=== PATIENT | male | born 1935 | race Caucasian/White ===

== ENCOUNTER 2020-12-22 11:39 | Emergency (ER) | payer MEDICARE ==
[2020-12-22 11:58] VITALS: PULSE 76; RESP 17; TEMP 98.2
[2020-12-22] MEDS ORDERED: SODIUM CHLORIDE 0.9% 500 ML 500 ML IV STA (12:21)
[2020-12-22] MEDS ORDERED: DIPH,PERTUS(ACELL)TETVAC-LF 0.5 ML VIAL IM ONE (12:22)
[2020-12-22] MEDS ORDERED: LIDOCAINE 1% INJ 10MG/ML (20 ML MDV) SQ ONE (12:30)
[2020-12-22] MEDS ORDERED: LIDOCAINE/EPINEPHR/TETRACAINE 5 ML BOTTLE TOPICAL ONE (12:30)
--- NOTE | 2020-12-22 12:30 | ED ---
Fall HPI - General Chief Complaint: Fall Stated Complaint: fall Source: patient, family Mode of arrival: wheelchair Limitations: no limitations - History of Present Illness Initial Comments: 85-year-old well-appearing and active white male presents to the emergency room with complaints of feeling lightheaded today while he was outside gardening. Patient states that he started to walk into the house and he fell going down the steps. He states he did not pass out, no loss of consciousness. Patient did sustain laceration above his right eyebrow. Patient denies any other injuries. He states that he has been monitoring his blood pressure at home and it has been reading a has an earache regular heartbeat. Patient has no history of atrophic fibrillation. He states he takes an aspirin a day but no other blood thinners. He denies any pain at this time. No focal neurological deficits. Patient states that he did get lightheaded again getting up from the wheelchair to the bed. Resolved once he was laying down. 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 ROS Other: All systems not noted in ROS Statement are negative. Past Medical History Past Medical History: No Reported History History of Any Multi-Drug Resistant Organisms: None Reported Past Surgical History: Hernia Repair Past Psychological History: No Psychological Hx Reported Smoking Status: Never smoker Past Alcohol Use History: None Reported Past Drug Use History: None Reported General Exam Limitations: no limitations General appearance: alert, in no apparent distress Head exam: Present: normocephalic, other (Laceration of the right eyebrow, bleeding controlled) Expanded Head exam: Absent: laceration, general tenderness, tenderness of temporal artery Eye exam: Present: normal appearance, PERRL, EOMI. Absent: scleral icterus, conjunctival injection, nystagmus, periorbital swelling Pupils: Present: normal accommodation ENT exam: Present: normal exam, normal oropharynx, mucous membranes moist Neck exam: Present: normal inspection, full ROM. Absent: tenderness, mening ismus, lymphadenopathy, thyromegaly Expanded Neck exam: Absent: tenderness, midline deformity, anterior neck swelling, thyroid mass, tracheal deviation Respiratory exam: Present: normal lung sounds bilaterally. Absent: respiratory distress, wheezes, rales, rhonchi, stridor, chest wall tenderness, accessory muscle use, decreased breath sounds, prolonged expiratory Cardiovascular Exam: Present: regular rate, normal rhythm, normal heart sounds. Absent: irregular rhythm, systolic murmur, diastolic murmur, rubs, gallop, clicks, JVD GI/Abdominal exam: Present: soft, normal bowel sounds. Absent: distended, tenderness, guarding, rebound, rigid Extremities exam: Present: normal inspection, full ROM, normal capillary refill. Absent: tenderness, pedal edema, joint swelling, calf tenderness Back exam: Present: normal inspection, full ROM. Absent: tenderness, CVA tenderness (R), CVA tenderness (L), muscle spasm, paraspinal tenderness, vert ebral tenderness, rash noted Expanded Back exam: Absent: saddle anesthesia Back exam: Negative Straight Leg Raising: Right, Left Neurological exam: Present: alert, oriented X3, CN II-XII intact Expanded Patient oriented to: Present: person, place, time Speech: Present: fluid speech Cranial nerves: EOM's Intact: Normal, Gag Reflex: Normal, Tongue Deviation: Normal Cerebellar function: Finger to Nose: Normal, Heel to [place]: Normal Motor strength exam: RUE: 5, LUE: 5, RLE: 5, LLE: 5 Eye Response: (4) open spontaneously Motor Response: (6) obeys commands Verbal Response: (5) oriented Serge Total: 15 Psychiatric exam: Present: normal affect, normal mood Skin exam: Present: warm, dry, intact, normal color. Absent: rash, cyanosis, diaphoretic, erythema, petechiae, pallor, mottled Course Vital Signs 12/22/20 11:50 Temperature 98.2 F Pulse Rate 76 Respiratory 17 Rate Blood Pressure 128/82 O2 Sat by Pulse 97 Oximetry Medical Decision Making - Medical Decision Making 0.5 cm laceration noted to the right lateral eyebrow irrigated with saline and closed with dermal glue at patient request. well approximated. CT brain and C- spine shows no evidence for fracture, ischemic changes but no evidence of intracranial bleed or midline shift. There is complete opacification of the right maxillary sinus. Chest x-ray is negative for any acute cardiopulmonary process. Troponin is negative at 0.012, potassium is 4.4, glucose was 109, hemoglobin and hematocrit is 14 and 43. WBC count is 5.3. Patient instructed to follow up with his primary care doctor and cardiology for irregular heartbeat and near-syncopal episodes. Son at bedside states he will help patient with these arrangements. Irritable directed to return to the emergency room with any worsening symptoms including chest pain, shortness of breath or syncope. Patient and son are agreeable to this plan of care. Case discussed with Dr. Chambers and Dr. Alvarado - Lab Data Result diagrams: 12/22/20 12:37 12/22/20 12:37 Lab Results 12/22/20 12/22/20 12/22/20 Range/Units 12:37 12:37 12:37 WBC 5.3 (3.8-10.6) k/uL RBC 4.58 (4.30-5.90) m/uL Hgb 14.8 (13.0-17.5) gm/dL Hct 43.6 (39.0-53.0) % MCV 95.2 (80.0-100.0) fL MCH 32.3 (25.0-35.0) pg MCHC 34.0 (31.0-37.0) g/dL RDW 12.4 (11.5-15.5) % Plt Count 265 (150-450) k/uL MPV 8.4 Neutrophils % 66 % Lymphocytes % 20 % Monocytes % 7 % Eosinophils % 5 % Basophils % 1 % Neutrophils # 3.5 (1.3-7.7) k/uL Lymphocytes # 1.1 (1.0-4.8) k/uL Monocytes # 0.4 (0-1.0) k/uL Eosinophils # 0.3 (0-0.7) k/uL Basophils # 0.0 (0-0.2) k/uL Sodium 139 (137-145) mmol/L Potassium 4.4 (3.5-5.1) mmol/L Chloride 106 (98-107) mmol/L Carbon Dioxide 28 (22-30) mmol/L Anion Gap 5 mmol/L BUN 25 H (9-20) mg/dL Creatinine 0.96 (0.66-1.25) mg/dL Est GFR (CKD-EPI)AfAm 84 (>60 ml/min/1.73 sqM) Est GFR (CKD-EPI)NonAf 72 (>60 ml/min/1.73 sqM) Glucose 109 H (74-99) mg/dL Calcium 10.0 (8.4-10.2) mg/dL Total Bilirubin 0.7 (0.2-1.3) mg/dL AST 31 (17-59) U/L ALT 18 (4-49) U/L Alkaline Phosphatase 109 (38-126) U/L Troponin I <0.012 (0.000-0.034) ng/mL Total Protein 6.7 (6.3-8.2) g/dL Albumin 4.0 (3.5-5.0) g/dL Urine Color Urine Appearance (Clear) Urine pH (5.0-8.0) Ur Specific [place] (1.001-1.035) Urine Protein (Negative) Urine Glucose (UA) (Negative) Urine Ketones (Negative) Urine Blood (Negative) Urine Nitrite (Negative) Urine Bilirubin (Negative) Urine Urobilinogen (<2.0) mg/dL Ur Leukocyte Esterase (Negative) 12/22/20 Range/Units 13:54 WBC (3.8-10.6) k/uL RBC (4.30-5.90) m/uL Hgb (13.0-17.5) gm/dL Hct (39.0-53.0) % MCV (80.0-100.0) fL MCH (25.0-35.0) pg MCHC (31.0-37.0) g/dL RDW (11.5-15.5) % Plt Count (150-450) k/uL MPV Neutrophils % % Lymphocytes % % Monocytes % % Eosinophils % % Basophils % % Neutrophils # (1.3-7.7) k/uL Lymphocytes # (1.0-4.8) k/uL Monocytes # (0-1.0) k/uL Eosinophils # (0-0.7) k/uL Basophils # (0-0.2) k/uL Sodium (137-145) mmol/L Potassium (3.5-5.1) mmol/L Chloride (98-107) mmol/L Carbon Dioxide (22-30) mmol/L Anion Gap mmol/L BUN (9-20) mg/dL Creatinine (0.66-1.25) mg/dL Est GFR (CKD-EPI)AfAm (>60 ml/min/1.73 sqM) Est GFR (CKD-EPI)NonAf (>60 ml/min/1.73 sqM) Glucose (74-99) mg/dL Calcium (8.4-10.2) mg/dL Total Bilirubin (0.2-1.3) mg/dL AST (17-59) U/L ALT (4-49) U/L Alkaline Phosphatase (38-126) U/L Troponin I (0.000-0.034) ng/mL Total Protein (6.3-8.2) g/dL Albumin (3.5-5.0) g/dL Urine Color Yellow Urine Appearance Clear (Clear) Urine pH 6.0 (5.0-8.0) Ur Specific [place] 1.015 (1.001-1.035) Urine Protein Negative (Negative) Urine Glucose (UA) Negative (Negative) Urine Ketones 1+ H (Negative) Urine Blood Negative (Negative) Urine Nitrite Negative (Negative) Urine Bilirubin Negative (Negative) Urine Urobilinogen <2.0 (<2.0) mg/dL Ur Leukocyte Esterase Negative (Negative) - EKG Data EKG shows normal: sinus rhythm (Ventricular rate of 68, NC interval 0.226, QRS of 0.88, QTc 0.431; first-degree AV block) Disposition Clinical Impression: Pre-syncope, Fall Disposition: HOME SELF-CARE Condition: Good Instructions (If sedation given, give patient instructions): Fall Prevention for Older Adults (ED), Near Syncope (ED) Additional Instructions: Return to the emergency room with any worsening symptoms including chest pain, shortness of breath. Instructed to keep the facial laceration clean and dry. Return if any signs of infection including fever, drainage or redness. Is patient prescribed a controlled substance at d/c from ED?: No Referrals: None,Stated [Primary Care Provider] - 1-2 days Tracy Serrato MD [Medical Doctor] - 1-2 days Yan Villeda MD [STAFF PHYSICIAN] - 1-2 days Time of Disposition: 14:46
[2020-12-22 13:02] LABS: Basophils % (A) 1 %; Eosinophils # (A) 0.3 k/uL (0-0.7); Eosinophils % (A) 5 %; HCT 43.6 % (39.0-53.0); HGB 14.8 gm/dL (13.0-17.5); Lymphocytes # (A) 1.1 k/uL (1.0-4.8); Lymphocytes % (A) 20 %; MCH 32.3 pg (25.0-35.0); MCV 95.2 fL (80.0-100.0); Mean Platelet Volume 8.4; Monocytes # (A) 0.4 k/uL (0-1.0); Monocytes % (A) 7 %; Neutrophils # (A) 3.5 k/uL (1.3-7.7); Neutrophils % (A) 66 %; Platelet Count 265 k/uL (150-450); RBC 4.58 m/uL (4.30-5.90); RDW 12.4 % (11.5-15.5); WBC 5.3 k/uL (3.8-10.6)
[2020-12-22 13:10] LABS: Potassium 4.4 mmol/L (3.5-5.1); Total Bilirubin 0.7 mg/dL (0.2-1.3); Total Protein 6.7 g/dL (6.3-8.2)
--- NOTE | 2020-12-22 13:25 | CT ---
EXAMINATION TYPE: CT brain jazmyne perez DATE OF EXAM: 12/22/2020 COMPARISON: None HISTORY: Fall today with Right supraorbital lacertaion CT DLP: 1399.[address] of the brain was performed. The ventricles, basal cisterns and sulci overlying the cerebral convexities demonstrate mild enlargem ent. There is no evidence for intracranial hemorrhage or sulcal effacement. There is decreased attenuatio n about the periventricular white matter and deep white matter of both cerebral hemispheres, compatib le with chronic small vessel ischemia. No mass effects are seen. If symptoms persist consider MRI. Osseous calvarium is intact. Complete opacification right maxillary sinus. IMPRESSION: 1. Age related atrophic and chronic small vessel ischemic change without acute intracranial process seen at this time. CT Cervical Spine: Unenhanced CT of the cervical spine was performed with bone and soft tissue window settings submitted . Coronal and sagittal reconstruction is obtained. There is normal alignment and prevertebral soft tissues. No evidence for acute cervical fracture . Scattered degenerative disc disease and spondylosis. Biapical scarring. IMPRESSION: 1. No evidence for acute fracture or subluxation of the cervical spine.
--- NOTE | 2020-12-22 13:26 | XR ---
EXAMINATION TYPE: XR chest 2V DATE OF EXAM: 12/22/2020 COMPARISON: 10/21/2012 HISTORY: Shortness of breath TECHNIQUE: Frontal and lateral views of the chest are obtained. FINDINGS: Scattered senescent parenchymal changes noted. Hyperinflation compatible with COPD. No evidence for infiltrate. No evidence for atelectasis. Heart size is stable. Mediastinal structures are stable and grossly unremarkable. No evidence for hilar prominence. Degenerative changes dorsal spine. IMPRESSION: 1. No evidence for acute pulmonary disease.
[2020-12-22] MEDS ORDERED: TOPICAL SKIN ADHESIVE 1 EACH AMP TOPICAL ONE (13:28)
[2020-12-22 14:23] LABS: Appearance,Urine Clear (Clear); Bilirubin,Urine Negative (Negative); Blood,Urine Negative (Negative); Color,Urine Yellow; Glucose,Urine (UA) Negative (Negative); Ketones,Urine 1+ (Negative); Leukocyte Esterase,Urine Negative (Negative); Nitrite,Urine Negative (Negative); Protein,Urine Negative (Negative); Specific Gravity,Urine 1.015 (1.001-1.035); Urobilinogen,Urine <2.0 mg/dL (<2.0)
[2020-12-22 16:12] VITALS: BP 132/72
== END 2020-12-22 14:55 | disposition home or self-care (01) ==
LOC: EC 11:39
DX: S01.111A Laceration without foreign body of right eyelid and periocular area, initial encounter (principal); R55 Syncope and collapse; Z88.0 Allergy status to penicillin; W10.9XXA Fall (on) (from) unspecified stairs and steps, initial encounter; Y92.009 Unspecified place in unspecified non-institutional (private) residence as the place of occurrence of the external cause
CPT/HCPCS: 36415; 93005; 80053; 84484; 85025; 81003; 71046; 72125; 70450; 90715; 12011; 99284; J2001

== ENCOUNTER → 2021-03-02 | Outpatient (CLI) | payer MEDICARE ==
[2021-03-02 09:39] LABS: African American GFR (CKD) >90 (>60 ml/min/1.73 sqM); Blood Urea Nitrogen 19 mg/dL (9-20); Non-African American GFR(CKD) 81 (>60 ml/min/1.73 sqM)
--- NOTE | 2021-03-02 11:15 | CT ---
EXAMINATION TYPE: CT abdomen pelvis w con DATE OF EXAM: 03/02/2021 COMPARISON: 12/12/2019 HISTORY: Prostate CA CT DLP: 708.5 mGycm Automated exposure control for dose reduction was used. CONTRAST: CT scan of the abdomen pelvis is performed with IV Contrast, patient injected with 100 mL of Isovue 3 00. FINDINGS- LUNG BASES-there is a subpleural nodule in the right lower lobe measuring 1.1 cm. Heart is enlarged. LIVER/GB- No gross abnormality is appreciated. PANCREAS- No gross abnormality is seen. SPLEEN- No gross abnormality is seen. ADRENALS- No gross abnormality is seen. KIDNEYS/BLADDER- no hydronephrosis or nephrolithiasis. Bilateral simple appearing renal cysts.. BOWEL-bowel gas pattern nonspecific. Changes of diverticulosis noted LYMPH NODES- No greater than 1cm abdominal or pelvic lymph nodes areappreciated. OSSEOUS STRUCTURES-there are remote rib fractures noted involving the right rib cage. Multifocal hype rtrophic and degenerative changes spine. There are sclerotic changes involving the pelvic bones with some areas of mixed lucency suggestive of bony metastasis. Retroverted arthropathy of the AC joint an d hip joints. Sclerosis involving the femoral head region bilaterally is nonspecific. Posteriorly.. OTHER- there is a 3 cm anterior subcutaneous soft tissue mass. Aorta of normal caliber. There is a s mall hiatal hernia. Prostate gland is mildly prominent with calcification. There is ectasia of the ao rta and iliac vasculature. No free fluid. Radiodensity overlying the anterior left abdominal wall lik loy artifactual. IMPRESSION- 1. 3 cm anterior abdominal wall subcutaneous mass. Metastases in the differential diagnosis. Findings stable from prior exam. 2. Right lower lobe subpleural nodule persists. Findings similar in size to prior exam. 3. 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
--- NOTE | 2021-03-02 16:41 | NM ---
EXAMINATION TYPE: NM bone scan whole body DATE OF EXAM: 03/02/2021 COMPARISON: CT abdomen and pelvis 03/02/2021 HISTORY: Prostate cancer Delayed whole-body scanning was performed following the injection of 22.6 mCi Tc 99m MDP. Images wer e acquired 4.75 hours post injection. FINDINGS: 2 foci of increased radiotracer accumulation within the posterior right ninth and 10th ribs. Addition al uptake appears to be within the anterior right ninth and 10th rib region. Correlate for trauma. COMPARISON: This exam is compared to 03/02/2021. Posterior right rib fractures are evident which likel y correspond to the radiotracer uptake on the bone scan. Likewise, healing fractures appear to be honey ng the anterior ribs corresponding to the radiotracer on the bone scan. Some mild uptake is near the bilateral knees and at the right ankle, likely degenerative in nature. There is uptake present within the posterior left sacroiliac joint region. This could correlate with the bone findings on the CT examination. Sclerosis however appears greater on the right and less inte nse on the bone scan images. Metastasis would remain within the differential. IMPRESSION: 1. Radiotracer within the sacroiliac joint region corresponds to findings on the CT examination sugge stive for underlying metastasis. 2. Intense uptake in the region of the ninth and 10th ribs appear to be related to rib fractures iden tified on the recent CT exam.
== END | disposition home or self-care (01) ==
LOC: RADCTMAIN 08:38
PROVIDERS: ATTEND Urology
DX: C61 Malignant neoplasm of prostate (principal)
CPT/HCPCS: 82565; 84520; 74177; 36415; 78306; A9503; Q9967

== ENCOUNTER 2021-05-18 06:30 | Day surgery (SDC) | payer MEDICARE ==
[2021-05-17 08:37] VITALS: BMI 22.8
[~2021-05-18 06:30] MED LIST: CYCLOPENTOLATE 1% OPHTH SOLN 2 ML BTL OP PRN; LACTATED RINGERS 1,000 ML IV SCH; MOXIFLOXACIN HCL 0.5% DROPS 3 ML BTL OP PRN; PHENYLEPHRINE 2.5% OPHTH DRP 2ML OP PRN; TETRACAINE 0.5% OPHTH (PF) DROPS 4 ML BTL OP PRN; TIMOLOL 0.5% OPHTH DROPS 5 ML BTL OP PRN
[2021-05-18] MEDS ORDERED: MIDAZOLAM 2 MG/2 ML VIAL ONE (07:35)
[2021-05-18] MEDS ORDERED: fentaNYL (PF) 50 MCG/ML 2 ML AMP ONE (07:35)
[2021-05-18] MEDS ORDERED: LACTATED RINGERS 800 ML IV ONE (07:40)
[2021-05-18] MEDS ORDERED: LIDOCAINE 1% (PF) 10MG/ML VIAL MISCELLANE ONE (07:55)
[2021-05-18] MEDS ORDERED: TRYPAN BLUE 0.06% SYRINGE 0.5 ML SYRINGE INTRAOCULA ONE (07:55)
[2021-05-18] MEDS ORDERED: EPINEPHrine (PF) 0.3 ML in BALANCED SALT IRRIG SOLN COMB2 500 ML IRRIGATION ONE (07:55)
[2021-05-18] MEDS ORDERED: BALANCED SALT IRRIG SOLN COMB2 15 ML IRRIG.SOLN INTRAOCULA ONE (07:55)
[2021-05-18] MEDS ORDERED: DUOVISC KIT (GREEN BOX) INTRAOCULA ONE (07:55)
--- NOTE | 2021-05-18 08:20 | P.OP ---
Date of Procedure: 05/18/21 Preoperative Diagnosis: NS & POAG mild Postoperative Diagnosis: same Procedure(s) Performed: PIOL & goniotomy Implants: [id number] MXUET18.5x 4.25 Anesthesia: MAC Surgeon: Dario Keller Pathology: none sent Condition: stable Disposition: no change Indications for Procedure: blurry vision and advancing glaucoma Operative Findings: no complications
[2021-05-18 08:34] VITALS: RESP 20
[2021-05-18 09:07] VITALS: BP 148/70; PULSE 66
--- NOTE | 2021-05-18 12:24 | OP ---
OPERATIVE REPORT DATE OF SURGERY: 05/18/2021. PROCEDURE: Phacoemulsification of cataract and intraocular lens implant of the right eye with goniotomy of the right eye. 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 SURGEON: Dr. Dario Keller. ANESTHESIA: Topical. ESTIMATED BLOOD LOSS: Minimal. SPECIMEN TAKEN: None. NARRATIVE: After obtaining the appropriate consent, the patient was brought to the operating room. There he was asked to sit upright, and the axes of zero and 180 meshwork for approximately 4 clock-hours was removed without difficulty. The patient was then rotated back to the normal supine position. A cystotome was introduced to begin a continuous tear capsulorrhexis which was then completed using the Utrata forceps. Hydrodissection and hydrodelineation of the lens was accomplished with balanced salt solution. Phacoemulsification utilizing phaco chop was accomplished in 36.29 seconds at 23% power. MMODL / IJN: [id number] /
--- NOTE | 2021-05-18 18:59 | OP ---
OPERATIVE REPORT DATE OF PROCEDURE: May 18, 2021 PROCEDURES: Phacoemulsification of cataract and intraocular lens implant of the right eye with goniotomy. PREOPERATIVE DIAGNOSES: Nuclear sclerosis, cortical sclerosis regular astigmatism and primary open-angle glaucoma mild stage. POSTOPERATIVE DIAGNOSES: Nuclear sclerosis, cortical sclerosis regular astigmatism and primary open-angle glaucoma mild stage. SURGEON: Dr. Draio Keller. ANESTHESIA: Topical. ESTIMATED BLOOD LOSS: None. SPECIMEN: None. NARRATIVE: After obtaining the appropriate consent, the patient was brought to the operating room. There he was asked to sit upright in the axes 0 and 180 degrees were identified and marked with a gentian ethel marker. He was then placed in the proper supine position under cardiac monitoring, then prepped and draped in the usual sterile manner. He was approached from his right temporal side and using previously acquired corneal topography information, the axis of 80 degrees was identified and marked with the [employer] axis marker. At the 11 o'clock position an MVR blade was used to create a paracentesis port. Through this opening, 1% Xylocaine MPF 50:50 mix with balanced salt solution was injected into the anterior chamber. This was followed by Trypan blue which was allowed to stay in the eye for about 1 minute. This was irrigated away with balanced salt solution and the eye was stabilized using Viscoat. At the 9 o'clock position, a 2.5 mm keratome was used to create a self-sealing corneal flap incision. At this point, the patient was asked to turn his head approximately 45 degrees away to the left and maintaining gaze in that general direction. A gonioscopy prism was placed on the patient's eye and the trabecular meshwork was readily identified with Trypan blue. Using a [place] dual blade goniotomy knife, a "reid and meet" method was used to remove the trabecular meshwork for approximately 4 o'clock hours on the nasal side of the patient's anterior chamber. He was then rotated back to the normal supine position and a cystotome was introduced to begin a continuous tear capsulorrhexis which was completed using the Utrata forceps. Hydrodissection and hydrodelineation of the lens were accomplished with balanced salt solution. Phacoemulsification of the lens utilizing phaco chop was accomplished in 36.29 seconds at 23% power. Additional Xylocaine MPF was instilled into the anterior chamber. This was followed by removal of the remaining cortex under irrigation and aspiration as well as careful polishing of the posterior capsule in the capsule vacuum mode. Provisc was then used to stabilize the capsular bag and a [employer] and [place] toric model MX UET 425+ 1 85 implant was placed into the capsular bag without difficulty. The remaining viscoelastic was removed from in and around the intraocular lens and the lens was rotated to its final position in alignment with the previously placed corneal axis norman at 8 degrees. The eye was brought to normal intraocular pressure through the paracentesis port with balanced salt solution. The wounds were confirmed watertight. He then received 2 drops of 0.5% timolol followed by 2 drops of moxifloxacin, was then lightly patched and shielded in the usual manner. There were no complications from the procedure. He tolerated the procedure well and was returned to outpatient recovery in good condition. MMMONIQUE / OLIVIA: [id number] /
== END 2021-05-18 09:08 | disposition home or self-care (01) ==
LOC: OR 06:30
PROVIDERS: ATTEND Ophthalmology
DX: H25.11 Age-related nuclear cataract, right eye (principal); H40.053 Ocular hypertension, bilateral; H40.1131 Primary open-angle glaucoma, bilateral, mild stage; H25.12 Age-related nuclear cataract, left eye; H52.13 Myopia, bilateral; G24.5 Blepharospasm; H52.223 Regular astigmatism, bilateral; H00.023 Hordeolum internum right eye, unspecified eyelid; Z88.1 Allergy status to other antibiotic agents; Z88.6 Allergy status to analgesic agent; Z79.899 Other long term (current) drug therapy; H00.026 Hordeolum internum left eye, unspecified eyelid
CPT/HCPCS: 66984; V2787; C1780; J2250; J0171; J3010; J2001

== ENCOUNTER 2021-06-22 06:24 | Day surgery (SDC) | payer MEDICARE ==
[2021-06-17 11:13] VITALS: BMI 22.8
[~2021-06-22 06:24] MED LIST changes: -CYCLOPENTOLATE 1% OPHTH SOLN 2 ML BTL OP PRN; +LIDOCAINE 1% (10MG/ML) FOR IV START INTRADERMA PRN; -PHENYLEPHRINE 2.5% OPHTH DRP 2ML OP PRN
[2021-06-22] MEDS: CYCLOPENTOLATE 1% OPHTH SOLN 2 ML BTL OP PRN ×3 (06:57→07:09)
[2021-06-22] MEDS: PHENYLEPHRINE 2.5% OPHTH DRP 2ML OP PRN ×3 (07:00→07:12)
[2021-06-22 07:09] VITALS: RESP 16; TEMP 97.6
[2021-06-22] MEDS ORDERED: fentaNYL (PF) 50 MCG/ML 2 ML AMP ONE (07:25)
[2021-06-22] MEDS ORDERED: MIDAZOLAM 2 MG/2 ML VIAL ONE (07:25)
[2021-06-22] MEDS ORDERED: TRYPAN BLUE 0.06% SYRINGE 0.5 ML SYRINGE MISCELLANE ONE (08:06)
[2021-06-22] MEDS ORDERED: LIDOCAINE 1% (PF) 10MG/ML VIAL SQ ONE (08:06)
[2021-06-22] MEDS ORDERED: BALANCED SALT IRRIG SOLN COMB2 15 ML IRRIG.SOLN IRRIGATION ONE (08:06)
[2021-06-22] MEDS ORDERED: DUOVISC KIT (GREEN BOX) INTRAOCULA ONE (08:06)
[2021-06-22] MEDS ORDERED: EPINEPHrine (PF) 0.3 ML in BALANCED SALT IRRIG SOLN COMB2 500 ML IRRIGATION ONE (08:07)
--- NOTE | 2021-06-22 08:28 | P.OP ---
Date of Procedure: 06/22/21 Preoperative Diagnosis: NS & POAG Postoperative Diagnosis: same Procedure(s) Performed: PIOL & goniotomy, OS Implants: [id number] 19.50 x 3.50 Anesthesia: MAC Surgeon: Dario Keller Pathology: none sent Condition: stable Disposition: same day Indications for Procedure: blurry visoin and glaucoma control Operative Findings: no complications
[2021-06-22 08:32] VITALS: PULSE 56
[2021-06-22 08:57] VITALS: BP 127/75
--- NOTE | 2021-06-23 11:34 | OP ---
OPERATIVE REPORT DATE OF SURGERY: 06/22/2021 PROCEDURE: Phacoemulsification of cataract and intraocular lens implant of the left eye with goniotomy of the left eye PREOPERATIVE DIAGNOSES: Nuclear sclerosis, cortical sclerosis, regular astigmatism and primary open-angle glaucoma, mild stage. POSTOPERATIVE DIAGNOSIS: Nuclear sclerosis, cortical sclerosis, regular astigmatism and primary open-angle glaucoma, mild stage. SURGEON: Dr. Dario Keller. ANESTHESIA: Topical. ESTIMATED BLOOD LOSS: None. SPECIMEN TAKEN: None. NARRATIVE: After obtaining the appropriate consent, the patient was brought to the operating room. There he was placed under cardiac monitoring, prepped and draped in the usual sterile manner. He was approached from his left temporal side, and using previously acquired corneal topography information, the axis of 166 degrees was identified and marked with the [employer] axis marker. This was followed by an MVR blade which was used as a paracentesis at the 5 o'clock position. Through this opening, 1% Xylocaine MPF 50:50 mix with balanced salt solution was injected into the anterior chamber. This was followed by instillation of Trypan blue, which was allowed to dwell in the eye for one minute. The Trypan was irrigated away and Viscoat was then used to stabilize the anterior chamber. At the 3 o'clock position, a 2.5 mm keratome was used to create a self-sealing corneal flap incision. A small amount of viscoelastic was placed on the patient's cornea. The patient was asked to rotate his head approximately 45 degrees to his right and a [place] dual blade goniotomy knife using the [id number] method was passed across the anterior chamber, and removal of the trabecular meshwork in the manner described was performed without difficulty. He was then rotated back to the normal supine position. A cystotome was introduced to begin a continuous tear capsulorrhexis which was then completed using the Utrata forceps. Hydrodissection and hydrodelineation of the lens were accomplished with balanced salt solution. Phacoemulsification of the lens utilizing phaco chop was accomplished in 32.67 seconds at 28% power. Additional lidocaine MPF was instilled into the anterior chamber. This was followed by removal of the remaining cortex under irrigation and aspiration as well as careful polishing of the posterior capsule in the capsule vacuum mode. Provisc was then used to stabilize the capsular bag and a Bausch and Lomb model MX60 ET, 19.5 x 3.5 diopters, was then inserted into the capsular bag without difficulty. The remaining viscoelastic was removed from in and around the intraocular lens. This was followed by orientation of the lens at the previously marked 166 degrees. The eye was then brought to normal intraocular pressure through the paracentesis and the eye was confirmed to be watertight. He then received 2 drops of 0.5% timolol followed by 2 drops of moxifloxacin, was then lightly patched and shielded in the usual manner. There were no complications of the procedure. He tolerated the procedure well and was returned to Outpatient Recovery in good condition. MMODL / IJN: [id number] /
== END 2021-06-22 09:20 | disposition home or self-care (01) ==
LOC: OR 06:24
PROVIDERS: ATTEND Ophthalmology
DX: H25.12 Age-related nuclear cataract, left eye (principal); H40.1121 Primary open-angle glaucoma, left eye, mild stage; H52.223 Regular astigmatism, bilateral; H40.053 Ocular hypertension, bilateral; G24.5 Blepharospasm; H43.399 Other vitreous opacities, unspecified eye; H00.023 Hordeolum internum right eye, unspecified eyelid; H00.026 Hordeolum internum left eye, unspecified eyelid; Z96.1 Presence of intraocular lens; Z98.41 Cataract extraction status, right eye; Z98.890 Other specified postprocedural states; Z79.1 Long term (current) use of non-steroidal anti-inflammatories (NSAID); Z79.82 Long term (current) use of aspirin; Z79.899 Other long term (current) drug therapy; N42.9 Disorder of prostate, unspecified; Z82.1 Family history of blindness and visual loss; Z83.3 Family history of diabetes mellitus; Z88.0 Allergy status to penicillin; Z88.8 Allergy status to other drugs, medicaments and biological substances; Z88.1 Allergy status to other antibiotic agents
CPT/HCPCS: 65820; 66982; C1780; J2250; J0171; J3010; J2001

== ENCOUNTER 2022-08-16 09:14 | Inpatient (IN) | payer MEDICARE ==
[2022-08-16] MEDS ORDERED: MORPHINE SULFATE 4 MG/ML SYRINGE IVP STA ×2 (09:47→10:52)
[2022-08-16] MEDS ORDERED: SODIUM CHLORIDE 0.9% 500 ML 500 ML IV STA (09:47)
--- NOTE | 2022-08-16 09:49 | ED ---
General Adult HPI - General Chief complaint: Abdominal Pain Stated complaint: Abd pain Time Seen by Provider: 08/16/22 09:40 Source: patient, RN notes reviewed, old records reviewed Mode of arrival: EMS Limitations: no limitations - History of Present Illness Initial comments: 87-year-old male presenting for evaluation of abdominal pain and left flank p ain. Symptoms began about 2 hours prior to arrival. No associated vomiting or diarrhea. Patient states he had a bowel movement yesterday. No rectal bleeding. No hematuria or dysuria. No fevers. Pain is severe at the time my evaluation. - Related Data Home Medications Medication Instructions Recorded Confirmed Aspirin EC [Ecotrin Low Dose] 81 mg PO Q3D 12/22/20 08/16/22 [place]-3 Fatty Acids/Fish Oil [Fish 1 cap PO Q2D 12/22/20 08/16/22 Oil 1,000 mg Softgel] Potassium Gluconate [Potassium 99 mg PO Q2D 12/22/20 08/16/22 Gluconate ER] Cholecalciferol [Vitamin D3 (25 25 mcg PO DAILY 05/17/21 08/16/22 Mcg = 1000 Iu)] bisacodyL [Dulcolax] 5 mg PO DAILY 05/17/21 08/16/22 Carboxymethylcellulose Sodium 1 drop BOTH EYES BID 08/16/22 08/16/22 [Refresh Tears] Allergies Allergy/AdvReac Type Severity Reaction Status Date / Time amoxicillin Allergy Unknown Verified 08/16/22 10:50 Review of Systems ROS Statement: Those systems with pertinent positive or pertinent negative responses have been documented in the HPI. ROS Other: All systems not noted in ROS Statement are negative. Past Medical History Past Medical History: Cancer, Eye Disorder, Prostate Disorder Additional Past Medical History / Comment(s): hx. prostate cancer 2019-getting hormone injections, kidney stones, cataracts History of Any Multi-Drug Resistant Organisms: None Reported Past Surgical History: Hernia Repair Additional Past Surgical History / Comment(s): prostate biopsy,rt cataract Past Anesthesia/Blood Transfusion Reactions: No Reported Reaction Smoking Status: Never smoker - Past Family History Mother Family Medical History: No Reported History Daughter(s) Family Medical History: Cancer Additional Family Medical History / Comment(s): breast General Exam Limitations: no limitations General appearance: alert, in no apparent distress Head exam: Present: atraumatic, normocephalic Eye exam: Present: normal appearance, PERRL ENT exam: Present: normal exam Neck exam: Present: normal inspection. Absent: tenderness, meningismus Respiratory exam: Present: normal lung sounds bilaterally. Absent: respiratory distress, wheezes Cardiovascular Exam: Present: regular rate, normal rhythm GI/Abdominal exam: Present: soft, tenderness (Generalized tenderness). Absent: distended, guarding Extremities exam: Present: normal inspection, normal capillary refill. Absent: pedal edema, joint swelling Neurological exam: Present: alert, oriented X3, CN II-XII intact. Absent: motor sensory deficit Psychiatric exam: Present: normal affect, normal mood Skin exam: Present: warm, dry, intact. Absent: cyanosis, diaphoretic Course Vital Signs 08/16/22 08/16/22 09:17 10:30 Pulse Rate 64 57 L Respiratory 18 16 Rate Blood Pressure 136/80 155/85 O2 Sat by Pulse 100 100 Oximetry EKG Findings - EKG Comments: EKG Findings:: EKG: Sinus rhythm with first-degree AV block rate of 62, MI int erval 266, QRS duration 88, QTC 440 ST segment elevation. Medical Decision Making - Medical Decision Making Was pt. sent in by a medical professional or institution (, PA, DRAMATIC ARTS HISTORIAN, urgent care, hospital, or [place] health care facility...) When possible be specific @ -[No] Did you speak to anyone other than the patient for history (EMS, parent, family, police, friend...)? What history was obtained from this source @ -[No] Did you review nursing and triage notes (agree or disagree)? Why? @ -[I reviewed and agree with nursing and triage notes] Were old charts reviewed (outside hosp., previous admission, EMS record, old EKG, old radiological studies, urgent care reports/EKG's, [place] health care facility records)? Report findings @ -Reviewed previous laboratory testing Differential Diagnosis (chest pain, altered mental status, abdominal pain women, abdominal pain men, vaginal bleeding, weakness, fever, dyspnea, syncope, headache, dizziness, GI bleed, back pain, seizure, CVA, palpatations, mental health, musculoskeletal)? @ -Differential Abdominal Pain Men: Appendicitis, cholecystitis, diverticulosis, ischemic bowel, pancreatitis, hepatitis, UTI, gastroenteritis, AAA, incarcerated hernia, bowel obstruction, constipation, inflammatory bowel, hepatitis, peptic ulcer disease, splenic infarction, perforated viscus, testicular torsion, this is not meant to be an all-inclusive list EKG interpreted by me (3pts min.). @ -[As above] X-rays interpreted by me (1pt min.). @ -[None done] CT interpreted by me (1pt min.). @ -CT abdomen and pelvis was performed, shows obstructive uropathy on the left with 3 mm stone in the mid ureter on the left. There is also concern for ruptured fornix U/S interpreted by me (1pt. min.). @ -[None done] What testing was considered but not performed or refused? (CT, X-rays, U/S, labs)? Why? @ -[None] What meds were considered but not given or refused? Why? @ -[None] Did you discuss the management of the patient with other professionals (professionals i.e. , PA, DRAMATIC ARTS HISTORIAN, lab, RT, psych nurse, social worker clinical, admitting officer, teacher, parachute/combatant diver officer, case consultant)? Give summary @ -[No] Was smoking cessation discussed for >3mins.? @ -[No] Was critical care preformed (if so, how long)? @ -[No] Were there social determinants of health that impacted care today? How? (Homelessness, low income, unemployed, alcoholism, drug addiction, transportation, low edu. Level, literacy, decrease access to med. care, longterm, rehab)? @ -[No] Was there de-escalation of care discussed even if they declined (Discuss DNR or withdrawal of care, Hospice)? DNR status @ -[No] What co-morbidities impacted this encounter? (DM, HTN, Smoking, COPD, CAD, Cancer, CVA, ARF, Chemo, Hep., AIDS, mental health diagnosis, sleep apnea, morbi d obesity)? @ -[None] Was patient admitted / discharged? Hospital course, mention meds given and route, prescriptions, significant lab abnormalities, going to OR and other pertinent info. @ -87 yo male who presented with abdominal pain and left flank pain. This was sudden onset. Workup initiated emergency department, patient has stable vitals. He has a normal CBC and normal CMP. CT performed which shows obstructing stone on the left with hydronephrosis and concern for ruptured fornix. I did discuss these findings with Dr. Barrera recommends the patient be kept nothing by mouth. Nurse practitioner has been contacted for evaluation. Patient will be admitted to internal medicine with urology on consult. Undiagnosed new problem with uncertain prognosis? @ -[No] Drug Therapy requiring intensive monitoring for toxicity (Heparin, Nitro, Insulin, Cardizem)? @ -[No] Were any procedures done? @ -[No] Diagnosis/symptom? @ -[Obstructive uropathy, ruptured fornix Acute, or Chronic, or Acute on Chronic? @ -[acute Uncomplicated (without systemic symptoms) or Complicated (systemic symptoms)? @ -[default] Side effects of treatment? @ -[No] Exacerbation, Progression, or Severe Exacerbation? @ -[No] Poses a threat to life or bodily function? How? (Chest pain, USA, ND, pneumonia, PE, COPD, DKA, ARF, appy, cholecystitis, CVA, Diverticulitis, Homicidal, Suicidal, threat to staff... and all critical care pts) @ -[Obstructing stone, renal failure, UTI with sepsis.] - Lab Data Result diagrams: 08/16/22 09:53 08/16/22 09:53 Lab Results 08/16/22 08/16/22 08/16/22 Range/Units 09:53 09:53 09:53 WBC 4.5 (3.8-10.6) k/uL RBC 4.56 (4.30-5.90) m/uL Hgb 14.4 (13.0-17.5) gm/dL Hct 42.3 (39.0-53.0) % MCV 92.8 (80.0-100.0) fL MCH 31.5 (25.0-35.0) pg MCHC 34.0 (31.0-37.0) g/dL RDW 12.4 (11.5-15.5) % Plt Count 259 (150-450) k/uL MPV 7.8 Neutrophils % 63 % Lymphocytes % 25 % Monocytes % 7 % Eosinophils % 3 % Basophils % 1 % Neutrophils # 2.9 (1.3-7.7) k/uL Lymphocytes # 1.1 (1.0-4.8) k/uL Monocytes # 0.3 (0-1.0) k/uL Eosinophils # 0.1 (0-0.7) k/uL Basophils # 0.0 (0-0.2) k/uL PT 10.5 (9.0-12.0) sec INR 1.0 (<1.2) APTT 21.4 L (22.0-30.0) sec Sodium (137-145) mmol/L Potassium (3.5-5.1) mmol/L Chloride (98-107) mmol/L Carbon Dioxide (22-30) mmol/L Anion Gap mmol/L BUN (9-20) mg/dL Creatinine (0.66-1.25) mg/dL Est GFR (CKD-EPI)AfAm (>60 ml/min/1.73 sqM) Est GFR (CKD-EPI)NonAf (>60 ml/min/1.73 sqM) Glucose (74-99) mg/dL Lactic Ac Sepsis Rflx Plasma Lactic Acid Antolin (0.7-2.0) mmol/L Calcium (8.4-10.2) mg/dL Total Bilirubin (0.2-1.3) mg/dL AST (17-59) U/L ALT (4-49) U/L Alkaline Phosphatase (38-126) U/L Total Protein (6.3-8.2) g/dL Albumin (3.5-5.0) g/dL Amylase (30-110) U/L Lipase (23-300) U/L Urine Color Yellow Urine Appearance Turbid (Clear) Urine pH 8.5 H (5.0-8.0) Ur Specific Keeler 1.019 (1.001-1.035) Urine Protein Trace H (Negative) Urine Glucose (UA) Negative (Negative) Urine Ketones 1+ H (Negative) Urine Blood Negative (Negative) Urine Nitrite Negative (Negative) Urine Bilirubin Negative (Negative) Urine Urobilinogen <2.0 (<2.0) mg/dL Ur Leukocyte Esterase Negative (Negative) Urine RBC 8 H (0-5) /hpf Urine WBC 1 (0-5) /hpf Amorphous Sediment Few H (None) /hpf Urine Bacteria Rare H (None) /hpf Urine Mucus Rare H (None) /hpf 08/16/22 08/16/22 08/16/22 Range/Units 09:53 09:53 10:57 WBC (3.8-10.6) k/uL RBC (4.30-5.90) m/uL Hgb (13.0-17.5) gm/dL Hct (39.0-53.0) % MCV (80.0-100.0) fL MCH (25.0-35.0) pg MCHC (31.0-37.0) g/dL RDW (11.5-15.5) % Plt Count (150-450) k/uL MPV Neutrophils % % Lymphocytes % % Monocytes % % Eosinophils % % Basophils % % Neutrophils # (1.3-7.7) k/uL Lymphocytes # (1.0-4.8) k/uL Monocytes # (0-1.0) k/uL Eosinophils # (0-0.7) k/uL Basophils # (0-0.2) k/uL PT (9.0-12.0) sec INR (<1.2) APTT (22.0-30.0) sec Sodium 138 (137-145) mmol/L Potassium 4.6 (3.5-5.1) mmol/L Chloride 106 (98-107) mmol/L Carbon Dioxide 23 (22-30) mmol/L Anion Gap 9 mmol/L BUN 27 H (9-20) mg/dL Creatinine 0.99 (0.66-1.25) mg/dL Est GFR (CKD-EPI)AfAm 79 (>60 ml/min/1.73 sqM) Est GFR (CKD-EPI)NonAf 68 (>60 ml/min/1.73 sqM) Glucose 175 H (74-99) mg/dL Lactic Ac Sepsis Rflx Y Plasma Lactic Acid Antolin 2.4 H* (0.7-2.0) mmol/L Calcium 9.7 (8.4-10.2) mg/dL Total Bilirubin 0.9 (0.2-1.3) mg/dL AST 28 (17-59) U/L ALT 23 (4-49) U/L Alkaline Phosphatase 89 (38-126) U/L Total Protein 6.8 (6.3-8.2) g/dL Albumin 4.1 (3.5-5.0) g/dL Amylase 94 (30-110) U/L Lipase 359 H (23-300) U/L Urine Color Urine Appearance (Clear) Urine pH (5.0-8.0) Ur Specific Keeler (1.001-1.035) Urine Protein (Negative) Urine Glucose (UA) (Negative) Urine Ketones (Negative) Urine Blood (Negative) Urine Nitrite (Negative) Urine Bilirubin (Negative) Urine Urobilinogen (<2.0) mg/dL Ur Leukocyte Esterase (Negative) Urine RBC (0-5) /hpf Urine WBC (0-5) /hpf Amorphous Sediment (None) /hpf Urine Bacteria (None) /hpf Urine Mucus (None) /hpf Disposition Clinical Impression: Calculus of kidney, Obstructive uropathy Disposition: ADMITTED IP TO THIS HOSP Condition: Stable Is patient prescribed a controlled substance at d/c from ED?: No Referrals: Antonietta Mcguire [Primary Care Provider] - 1-2 days Time of Disposition: 13:15
[2022-08-16 10:26] LABS: Basophils % (A) 1 %; Eosinophils # (A) 0.1 k/uL (0-0.7); Eosinophils % (A) 3 %; HCT 42.3 % (39.0-53.0); HGB 14.4 gm/dL (13.0-17.5); Lymphocytes # (A) 1.1 k/uL (1.0-4.8); Lymphocytes % (A) 25 %; MCH 31.5 pg (25.0-35.0); MCV 92.8 fL (80.0-100.0); Mean Platelet Volume 7.8; Monocytes # (A) 0.3 k/uL (0-1.0); Monocytes % (A) 7 %; Neutrophils # (A) 2.9 k/uL (1.3-7.7); Neutrophils % (A) 63 %; Platelet Count 259 k/uL (150-450); RBC 4.56 m/uL (4.30-5.90); RDW 12.4 % (11.5-15.5); WBC 4.5 k/uL (3.8-10.6)
[2022-08-16 10:40] LABS: Albumin 4.1 g/dL (3.5-5.0); Calcium 9.7 mg/dL (8.4-10.2); Potassium 4.6 mmol/L (3.5-5.1); Total Bilirubin 0.9 mg/dL (0.2-1.3); Total Protein 6.8 g/dL (6.3-8.2)
[2022-08-16 10:50] LABS: Prothrombin Time 10.5 sec (9.0-12.0)
[2022-08-16 10:54] LABS: Partial Thromboplastin Time 21.4 sec (22.0-30.0)
[2022-08-16 11:11] LABS: Amorphous Sediment,Urine Few /hpf; Appearance,Urine Turbid (Clear); Bacteria,Urine Rare /hpf; Bilirubin,Urine Negative (Negative); Blood,Urine Negative (Negative); Color,Urine Yellow; Glucose,Urine (UA) Negative (Negative); Ketones,Urine 1+ (Negative); Leukocyte Esterase,Urine Negative (Negative); Mucus,Urine Rare /hpf; Nitrite,Urine Negative (Negative); PH, Urine 8.5 (5.0-8.0); Protein,Urine Trace (Negative); RBC,Urine 8 /hpf (0-5); Specific Gravity,Urine 1.019 (1.001-1.035); Urobilinogen,Urine <2.0 mg/dL (<2.0); WBC,Urine 1 /hpf (0-5)
--- NOTE | 2022-08-16 12:52 | CT ---
EXAMINATION TYPE: CT abdomen pelvis w con DATE OF EXAM: 08/16/2022 COMPARISON: CT abdomen pelvis March 02, 2021 HISTORY: Abdominal pain not further specified. CT DLP: 732.9 mGycm, Automated Exposure Control for Dose Reduction was Utilized. CONTRAST: CT scan of the abdomen and pelvis is performed without oral but with IV Contrast, patient injected wi th 100 mL of Isovue 300. FINDINGS: LUNG BASES: Heart size upper limits of normal with coronary artery stent and/or calcification in the RCA distribution. There is [id number] bibasilar linear scarring and/or atelectasis with persist ent focal nodule or nodular scarring in the posterior lateral right lung base measuring 19 x 16 mm ax ial image 8 slightly larger versus prior. Nonemergent follow-up should be considered. LIVER/GB: Visualized liver is heterogeneously hypodense suggesting diffuse fatty infiltration. Gallbl adder has some distended margins without surrounding fluid or fat stranding. PANCREAS: No significant abnormality is seen. SPLEEN: No significant abnormality is seen. ADRENALS: No significant abnormality is seen. KIDNEYS: Symmetric cortical medullary uptake and excretion with mild left-sided hydronephrosis. There is 2 mm nonobstructing calculus lower pole right kidney coronal image 56 Simple appearing thin-bhaskar d cysts are scattered throughout the bilateral kidneys. There is new moderate left-sided retroperiton eal fluid along the anterior superior aspect of the left kidney. Retroaortic left renal vein which is normal variant is redemonstrated. Suspect to 3 mm obstructing left ureter calculus coronal image 46 BOWEL: Suboptimal evaluation without enteric contrast. No suspicious smaller large bowel dilatation PROSTATE/SEMINAL VESICLES: Mildly enlarged prostate consistent with BPH. Some central calcifications. Adjacent scattered pelvic phleboliths. LYMPH NODES: No greater than 1cm abdominal or pelvic lymph nodes are appreciated. OSSEOUS STRUCTURES: Mild narrowing and moderate acetabular spurring of both hips. Multilevel disc spa ce narrowing in the lumbar spine which is straight in alignment. Most prominent findings noted at L4- L5 level. Posterior spur disc complexes efface the anterior thecal sac at L2-L3 and L3-L4 levels.. OTHER: Mild calcified plaque of the aorta extends into branch vessels. Persistent 3.4 x 2.4 cm oval c ircumscribed anterior midline upper abdominal heterogeneous oval mass axial image 30 similar or sligh tly larger in size from prior CT. IMPRESSION: There is 2 to 3 mm obstructing left proximal to mid ureter calculus causing mild right-si ded hydronephrosis but no delayed excretion. Moderate left-sided retroperitoneal fluid suggests ruptu red fornix related to obstructive uropathy.
[2022-08-16] MEDS ORDERED: SODIUM CHLORIDE 0.9% 1,000 ML IV STA (13:34)
[2022-08-16] MEDS ORDERED: NALOXONE 0.4 MG/ML 1 ML VIAL IV PRN (14:35)
--- NOTE | 2022-08-16 15:10 | P.HPIM ---
History of Present Illness H&P Date: 08/16/22 History of Presenting Illness: Patient is a very pleasant 87-year-old male with a past medical history of prostate cancer and kidney stones. He presented to the emergency department with a chief complaint of abdominal and left lower flank pain. Patient states symptoms were sudden onset and severe similar to previous episodes of kidney stones. He reports abdominal and left lower flank pain has been accompanied by dysuria but denies any other associated symptoms including headache, lightheadedness, fever, chills, chest pain, palpitations, nausea, vomiting, diarrhea, constipation, hematuria, urinary frequency or urgency, and denies any testicular pain or swelling. Patient underwent full evaluation in the emergency department. CT abdomen and pelvis with contrast was completed which revealed a 2-3 mm obstructing left proximal to mid ureter calculi with mild right-sided hydronephrosis and moderate left-sided retroperitoneal fluid suggestive of ruptured fornix related to obstructive uropathy, as well as persistent 3.4 x 2.4 cm oval circumscribed anterior midline upper abdominal heterogeneous mass similar or slightly larger in size from prior CT completed 03/02/21. EKG completed showing sinus rhythm at 62 bpm with a first-degree AV block with TN interval of [address] elevation in leads 2, 3, and aVF unchanged from previous EKG completed 12/22/20 upon personal review and interpretation. Labs completed and reviewed. CBC, coags, and CMP showing no significant abnormalities with the exception of mildly elevated BUN at 27 and hyperglycemia with glucose of 175. Lipase was completed and elevated at 359. Initial lactate 2.4 and patient given a 2L bolus of 0.9% normal saline with repeat lactate of 0.8. Urinalysis positive for protein, ketones, and RBCs but negative for infection. Discussed thoroughly with the ED provider and patient being admitted to our services with consultation to urology with reported tentative plans for cystoscopy and stent placement tomorrow. Review of systems: Pertinent positives and negatives as discussed in HPI, a complete review of systems was performed and all other systems are negative. Physical exam: Vital signs reviewed and stable. General: Nontoxic, no distress and appears stated age. Derm: Skin warm and dry, normal coloration for ethnicity. Head: Atraumatic, normocephalic and symmetric. Eyes: EOMs intact, no lid lag, and anicteric sclera Mouth: no lip lesions, mucus membranes moist Cardiovascular: regular rate and rhythm with normal S1S2, systolic murmur, positive posterior tibial pulses bilaterally, and cap refill < 2 seconds. Lungs: Respirations even, regular, and unlabored on room air. Lungs CTA bilaterally, no rhonchi, no rales, no wheezing, and no accessory muscle usage. Abdominal: soft, mild tenderness to suprapubic region and left lower flank, no guarding, no appreciable organomegaly Ext: ROM intact. No gross muscle atrophy, no edema, no contractures Neuro: Speech clear, face symmetrical and CN II-XII grossly intact with no noted focal neuro deficits Psych: Alert and oriented to person, place, time, and situation. Appropriate and pleasant affect. Assessment and Plan of Care: Obstructive left ureter calculi Right-sided hydronephrosis Left-sided Flank pain secondary to above History of prostate cancer Abdominal heterogeneous mass Lactic acidosis, resolved after IV fluid hydration -CT abdomen and pelvis with contrast was completed which revealed a 2-3 mm obstructing left proximal to mid ureter calculi with mild right-sided hydronephrosis and moderate left-sided retroperitoneal fluid suggestive of ruptured fornix related to obstructive uropathy, as well as persistent 3.4 x 2.4 cm oval circumscribed anterior midline upper abdominal heterogeneous mass similar or slightly larger in size from prior CT completed 03/02/21. -EKG completed showing sinus rhythm at 62 bpm with a first-degree AV block with TN interval of [address] elevation in leads 2, 3, and aVF unchanged from previous EKG completed 12/22/20 upon personal review and interpretation. -Labs completed and reviewed. CBC, coags, and CMP showing no significant abnormalities with the exception of mildly elevated BUN at 27 and hyperglycemia with glucose of 175. Lipase was completed and elevated at 359. -Initial lactate 2.4 and patient given a 2L bolus of 0.9% normal saline with repeat lactate of 0.8. -Urinalysis positive for protein, ketones, and RBCs but negative for infection. -Discussed thoroughly with the ED provider and patient being admitted to our services with consultation to urology with reported tentative plans for cystoscopy and stent placement tomorrow. -Urology consulted. -Recommend patient to continue following up outpatient for monitoring of previously known abdominal heterogeneous mass -Order placed for insertion of Dixon catheter and strict I's and O's -Patient to maintain NPO status until evaluated by urologist. -Order placed for gentle IV fluid hydration with 0.9% normal saline, may discontinue once patient is no longer NPO The patient is admitted with an anticipated greater than 2 midnight stay for evaluation of obstructive left ureteral calculi with right-sided hydronephrosis CODE STATUS: Full code DVT prophylaxis: Lovenox Discussed with: Patient, RN, and ED physician Anticipated discharge date: Clinical course to determine Anticipated discharge place: Home Patient was seen independently by Nurse Practitioner. This document was prepared using [employer] dictation software. Please allow for errors in aircraft structural design engineer while rare they do occur. Rell Duarte VP PUBLIC RELATIONS rendered care for this patient independently, reviewed the findings and plan as documented in the note above. I did not physically speak with or examine the patient on this date. Past Medical History Past Medical History: Cancer, Eye Disorder, Prostate Disorder Additional Past Medical History / Comment(s): hx. prostate cancer 2020-getting hormone injections, kidney stones, cataracts History of Any Multi-Drug Resistant Organisms: None Reported Past Surgical History: Hernia Repair Additional Past Surgical History / Comment(s): prostate biopsy,rt cataract Past Anesthesia/Blood Transfusion Reactions: No Reported Reaction Smoking Status: Never smoker - Past Family History Mother Family Medical History: No Reported History Daughter(s) Family Medical History: Cancer Additional Family Medical History / Comment(s): breast Medications and Allergies Home Medications Medication Instructions Recorded Confirmed Type Aspirin EC [Ecotrin Low Dose] 81 mg PO Q3D 12/22/20 08/16/22 History [place]-3 Fatty Acids/Fish Oil [Fish 1 cap PO Q2D 12/22/20 08/16/22 History Oil 1,000 mg Softgel] Potassium Gluconate [Potassium 99 mg PO Q2D 12/22/20 08/16/22 History Gluconate ER] Cholecalciferol [Vitamin D3 (25 25 mcg PO DAILY 05/17/21 08/16/22 History Mcg = 1000 Iu)] bisacodyL [Dulcolax] 5 mg PO DAILY 05/17/21 08/16/22 History Carboxymethylcellulose Sodium 1 drop BOTH EYES BID 08/16/22 08/16/22 History [Refresh Tears] Allergies Allergy/AdvReac Type Severity Reaction Status Date / Time amoxicillin Allergy Unknown Verified 08/16/22 10:50 Physical Exam Vitals: Vital Signs Pulse Resp BP Pulse Ox 08/16/22 13:32 61 18 151/82 98 08/16/22 10:30 57 L 16 155/85 100 08/16/22 09:17 64 18 136/80 100 Intake and Output 08/15/22 08/16/22 08/16/22 22:59 06:59 14:59 Output Total 148 Balance -148 Output: Post Void Residual 148 Other: Weight 68.039 kg Results CBC & Chem 7: 08/17/22 06:20 08/17/22 06:20 Labs: Abnormal Lab Results - Last 24 Hours (Table) 08/16/22 08/16/22 08/16/22 Range/Units 09:53 09:53 09:53 APTT 21.4 L (22.0-30.0) sec BUN 27 H (9-20) mg/dL Glucose 175 H (74-99) mg/dL Plasma Lactic Acid Antolin (0.7-2.0) mmol/L Lipase 359 H (23-300) U/L Urine pH 8.5 H (5.0-8.0) Urine Protein Trace H (Negative) Urine Ketones 1+ H (Negative) Urine RBC 8 H (0-5) /hpf Amorphous Sediment Few H (None) /hpf Urine Bacteria Rare H (None) /hpf Urine Mucus Rare H (None) /hpf 08/16/22 Range/Units 09:53 APTT (22.0-30.0) sec BUN (9-20) mg/dL Glucose (74-99) mg/dL Plasma Lactic Acid Antolin 2.4 H* (0.7-2.0) mmol/L Lipase (23-300) U/L Urine pH (5.0-8.0) Urine Protein (Negative) Urine Ketones (Negative) Urine RBC (0-5) /hpf Amorphous Sediment (None) /hpf Urine Bacteria (None) /hpf Urine Mucus (None) /hpf
[2022-08-16] MEDS: SODIUM CHLORIDE 0.9% 1,000 ML IV SCH ×2 (19:13→23:16)
--- NOTE | 2022-08-16 20:06 | P.GSCN ---
History of Present Illness Consult date: 08/16/22 Reason for Consult: Left ureteral calculus Requesting physician: Tia Alvarado History of present illness: The patient is an 87-year-old white male who experienced acute onset of abdominal and left flank pain this morning. He presented to the ER for evaluation. CT scan shows evidence of left hydronephrosis with a left flank urinoma due to a ruptured fornix, resulting from a 3 mm left proximal ureteral calculus. He is feeling somewhat better at this time. He denies any prior history of urolithiasis. He is currently receiving androgen deprivation therapy for prostate cancer, which was diagnosed in 2019. Review of Systems - Constitutional Denies chills, Denies fever - Gastrointestinal Denies nausea, Denies vomiting - Genitourinary Reports dysuria, Reports flank pain, Reports kidney stones, Denies hematuria Past Medical History Past Medical History: Cancer, Eye Disorder, Prostate Disorder Additional Past Medical History / Comment(s): hx. prostate cancer 2019-getting hormone injections, kidney stones, cataracts History of Any Multi-Drug Resistant Organisms: None Reported Past Surgical History: Hernia Repair Additional Past Surgical History / Comment(s): prostate biopsy,rt cataract Past Anesthesia/Blood Transfusion Reactions: No Reported Reaction Smoking Status: Never smoker - Past Family History Mother Family Medical History: No Reported History Daughter(s) Family Medical History: Cancer Additional Family Medical History / Comment(s): breast Medications and Allergies Home Medications Medication Instructions Recorded Confirmed Type Aspirin EC [Ecotrin Low Dose] 81 mg PO Q3D 12/22/20 08/16/22 History [place]-3 Fatty Acids/Fish Oil [Fish 1 cap PO Q2D 12/22/20 08/16/22 History Oil 1,000 mg Softgel] Potassium Gluconate [Potassium 99 mg PO Q2D 12/22/20 08/16/22 History Gluconate ER] Cholecalciferol [Vitamin D3 (25 25 mcg PO DAILY 05/17/21 08/16/22 History Mcg = 1000 Iu)] bisacodyL [Dulcolax] 5 mg PO DAILY 05/17/21 08/16/22 History Carboxymethylcellulose Sodium 1 drop BOTH EYES BID 08/16/22 08/16/22 History [Refresh Tears] Allergies Allergy/AdvReac Type Severity Reaction Status Date / Time amoxicillin Allergy Unknown Verified 08/16/22 10:50 Surgical - Exam Vital Signs Pulse Resp BP Pulse Ox 64 18 136/80 100 08/16/22 09:17 08/16/22 09:17 08/16/22 09:17 08/16/22 09:17 - General well developed, well nourished, no distress - Neck no masses, trachea midline - Respiratory normal respiratory effort - Abdomen Soft, non-distended, no mass. There is no abdominal tenderness. Mild left CVA tenderness is noted. - Genitourinary normal penis with no external lesions, testicles non-tender - Psychiatric oriented to time, oriented to person, oriented to place, speech is normal, memory intact Results - Labs 08/16/22 09:53 08/16/22 09:53 Abnormal Lab Results - Last 24 Hours (Table) 08/16/22 08/16/22 08/16/22 Range/Units 09:53 09:53 09:53 APTT 21.4 L (22.0-30.0) sec BUN 27 H (9-20) mg/dL Glucose 175 H (74-99) mg/dL Plasma Lactic Acid Antolin (0.7-2.0) mmol/L Lipase 359 H (23-300) U/L Urine pH 8.5 H (5.0-8.0) Urine Protein Trace H (Negative) Urine Ketones 1+ H (Negative) Urine RBC 8 H (0-5) /hpf Amorphous Sediment Few H (None) /hpf Urine Bacteria Rare H (None) /hpf Urine Mucus Rare H (None) /hpf 08/16/22 Range/Units 09:53 APTT (22.0-30.0) sec BUN (9-20) mg/dL Glucose (74-99) mg/dL Plasma Lactic Acid Antolin 2.4 H* (0.7-2.0) mmol/L Lipase (23-300) U/L Urine pH (5.0-8.0) Urine Protein (Negative) Urine Ketones (Negative) Urine RBC (0-5) /hpf Amorphous Sediment (None) /hpf Urine Bacteria (None) /hpf Urine Mucus (None) /hpf Diabetes panel 08/16/22 Range/Units 09:53 Sodium 138 (137-145) mmol/L Potassium 4.6 (3.5-5.1) mmol/L Chloride 106 (98-107) mmol/L Carbon Dioxide 23 (22-30) mmol/L BUN 27 H (9-20) mg/dL Creatinine 0.99 (0.66-1.25) mg/dL Glucose 175 H (74-99) mg/dL Calcium 9.7 (8.4-10.2) mg/dL AST 28 (17-59) U/L ALT 23 (4-49) U/L Alkaline Phosphatase 89 (38-126) U/L Total Protein 6.8 (6.3-8.2) g/dL Albumin 4.1 (3.5-5.0) g/dL Calcium panel 08/16/22 Range/Units 09:53 Calcium 9.7 (8.4-10.2) mg/dL Albumin 4.1 (3.5-5.0) g/dL Pituitary panel 08/16/22 Range/Units 09:53 Sodium 138 (137-145) mmol/L Potassium 4.6 (3.5-5.1) mmol/L Chloride 106 (98-107) mmol/L Carbon Dioxide 23 (22-30) mmol/L BUN 27 H (9-20) mg/dL Creatinine 0.99 (0.66-1.25) mg/dL Glucose 175 H (74-99) mg/dL Calcium 9.7 (8.4-10.2) mg/dL Adrenal panel 08/16/22 Range/Units 09:53 Sodium 138 (137-145) mmol/L Potassium 4.6 (3.5-5.1) mmol/L Chloride 106 (98-107) mmol/L Carbon Dioxide 23 (22-30) mmol/L BUN 27 H (9-20) mg/dL Creatinine 0.99 (0.66-1.25) mg/dL Glucose 175 H (74-99) mg/dL Calcium 9.7 (8.4-10.2) mg/dL Total Bilirubin 0.9 (0.2-1.3) mg/dL AST 28 (17-59) U/L ALT 23 (4-49) U/L Alkaline Phosphatase 89 (38-126) U/L Total Protein 6.8 (6.3-8.2) g/dL Albumin 4.1 (3.5-5.0) g/dL - Imaging CT scan - abdomen: report reviewed, image reviewed Assessment and Plan Assessment: Left proximal ureteral calculus resulting in left hydronephrosis and left perinephric urinoma due to ruptured fornix. (1) Hydronephrosis with renal and ureteral calculous obstruction Current Visit: Yes Status: Acute Code(s): N13.2 - HYDRONEPHROSIS WITH RENAL AND URETERAL CALCULOUS OBSTRUCTION SNOMED Code(s): 206603751 Plan: I have explained Mr. Sosa's condition to him in detail. He will undergo cystoscopy with left ureteral stent insertion tomorrow. I am hopeful that u reteroscopy with laser lithotripsy and possible stone basketing can be performed at that time to remove the calculus and avoid the need for a secondary operative procedure. He was made aware of potential risks, which include anesthesia, bleeding, infection, ureteral injury, and inability to remove the calculus. Time with Patient: Greater than 30
[2022-08-16] MEDS: ARTIFICIAL TEARS-HYPROMELLOSE DROPS 15 ML BTL BOTH EYES SCH (21:12)
[2022-08-17] MEDS: ENOXAPARIN 40 MG/0.4 ML SYRINGE SQ SCH (07:47)
[2022-08-17 08:44] LABS: HCT 37.5 % (39.6-50.0); HGB 12.2 g/dL (13.0-17.0); MCH 31.3 pg (27.0-32.0); MCHC 32.5 g/dL (32.0-37.0); MCV 96.2 fL (80.0-97.0); Mean Platelet Volume 10.6 fL (9.5-12.2); NRBC Per 100 WBC 0 /100 WBCS (0.0-0.0); Platelet Count 209 X 10*3/uL (140-440); RDW 12.9 % (11.5-14.5); WBC 7.35 X 10*3/uL (4.50-10.00)
[2022-08-17 08:52] LABS: African American GFR (CKD) 88.7 (60.0-200.0); Albumin 3.4 g/dL (3.8-4.9); Albumin/Globulin Ratio 1.7 (1.60-3.17); Anion Gap 5.6 mmol/L (10.00-18.00); BUN/Creat Ratio 21.33 Ratio (12.00-20.00); Blood Urea Nitrogen 19.2 mg/dL (9.0-27.0); Carbon Dioxide 24.4 mmol/L (20.0-27.5); Non-African American GFR(CKD) 76.5 (60.0-200.0); Potassium 4.5 mmol/L (3.5-5.5); Total Bilirubin 0.8 mg/dL (0.30-1.20); Total Protein 5.4 g/dL (6.2-8.2)
[2022-08-17] MEDS: HYDROmorphone 0.5 MG/0.5 ML SYRINGE IVP PRN (09:06)
[2022-08-17] MEDS: SODIUM CHLORIDE 0.9% 1,000 ML IV SCH (10:43)
[2022-08-17] MEDS: ARTIFICIAL TEARS-HYPROMELLOSE DROPS 15 ML BTL BOTH EYES SCH ×2 (10:46→20:43)
[2022-08-17] MEDS ORDERED: IV FLUID CONTINUATION 1,000 ML IV ONE (11:50)
[2022-08-17] MEDS ORDERED: fentaNYL (PF) 50 MCG/ML 2 ML AMP ONE (13:29)
[2022-08-17] MEDS ORDERED: LIDOCAINE 2% INJ 20 MG/ML (2 ML VIAL) ONE (13:29)
[2022-08-17] MEDS ORDERED: PROPOFOL 10 MG/ML 20 ML VIAL IV ONE (13:29)
[2022-08-17] MEDS ORDERED: ePHEDrine 50 MG/ML 1 ML VIAL ONE (13:29)
[2022-08-17] MEDS ORDERED: ceFAZolin 1,000 MG VIAL ONE (13:29)
[2022-08-17] MEDS ORDERED: SODIUM CHLORIDE 0.9% 100 ML BAG ONE (13:29)
[2022-08-17] MEDS ORDERED: IOPAMIDOL-370 50ML BTL INJ ONE (14:05)
--- NOTE | 2022-08-17 15:07 | P.OP ---
Date of Procedure: 08/17/22 Preoperative Diagnosis: Left ureteral calculus Postoperative Diagnosis: Same Procedure(s) Performed: Cystoscopy, left retrograde pyelogram, left ureteroscopy with Holmium laser lithotripsy and stone basketing, left ureteral stent insertion, fulguration of vesical neck bleeder Anesthesia: MANDY Surgeon: Quang Barrera Estimated Blood Loss (ml): 10 IV fluids (ml): 300 Pathology: other (Calculus fragments, sent for chemical analysis) Condition: stable Disposition: PACU Indications for Procedure: The patient is an 87-year-old white male who experienced acute onset of abdominal and left flank pain. CT scan shows evidence of left hydronephrosis with a left flank urinoma due to a ruptured fornix, resulting from a 3 mm left proximal ureteral calculus. He now comes for ureteroscopic removal of the calculus and stent placement. Operative Findings: Left distal ureteral calculus, fragmented and removed completely. Description of Procedure: The patient was taken to the operating room and placed in the dorsolithotomy position, with legs supported in Mario stirrups. The external genitalia was prepped and draped sterilely. The 30 lens was used to introduce the 21-Tajik Zuniga cystoscopic sheath through the urethra and into the bladder under direct vision. The prostatic urethra showed evidence of lateral lobe enlargement, making passage of the cystoscope into the bladder somewhat difficult. The bladder was examined in its entirety. Both ureteral orifices were normal anatomic location and configuration. No tumors or foreign bodies were seen. Using a 10-Tajik cone-tipped catheter, a left retrograde pyelogram was performed. The calculus was identified within the left distal ureter. The cone-tipped catheter was advanced to dilate the intramural portion of the ureter. The cystoscope was removed, and the Zuniga semirigid ureteroscope was advanced into the bladder. The left ureteral orifice was cannulated, and the ureteroscope was advanced up to the calculus. The 200 micron Holmium laser probe was passed through the ureteroscope, and lithotripsy was performed. After fragmenting the calculus, fragments were removed using the 1.9-Tajik nitinol basket. With the ureteroscope in the ureter, contrast was injected to perform a second retrograde pyelogram, and no abnormalities were seen. Specifically, there were no additional calculi, and no contrast extravasation. A 0.038 inch Glidewire was passed through the ureteroscope, which was removed. The Glidewire was backloaded into the cystoscope, which was advanced into the bladder. A 26 cm, 6-Tajik double-J ureteral stent was placed over the wire. Proper stent positioning was verified fluoroscopically and endoscopically. Calculus fragments were removed from the bladder and sent for chemical analysis. Slight oozing from the posterior vesical neck was controlled using the Bugbee electrode. The bladder was emptied and the cystoscope removed. The patient tolerated the procedure well and was taken to the recovery room in stable condition. [facility] Report: Procedure Acuity: Urgent Stone Size and Location: 3-4 mm, left distal ureter Ureteral Dilation: No Ureteral Access Sheath Used: No Stone Sent for Analysis: Yes All Stones/Fragments Were Removed with a Basket: Yes Complications: No Preoperative Antibiotics Given: Yes Stent Placed: Yes If Stent Placed, Was String Left Attached: No If Stent Placed, When is it to be Removed: 2 weeks Discharge Medications: Tamsulosin
--- NOTE | 2022-08-17 16:01 | FL ---
EXAMINATION TYPE: FL guidance operating room DATE OF EXAM: 08/17/2022 FLUOROSCOPY Fluoroscopy time of 51 seconds was used during urologic procedure with a left ureteroscopy cystoscopy . 9 image/s document/s the procedure. DAP 1.9094 .
--- NOTE | 2022-08-17 16:32 | P.PN ---
Subjective Progress Note Date: 08/17/22 Hospital course: Patient is a very pleasant 87-year-old male with a past medical history of prostate cancer and kidney stones. He presented to the emergency department with a chief complaint of abdominal and left lower flank pain. Patient states symptoms were sudden onset and severe similar to previous episodes of kidney stones. He reports abdominal and left lower flank pain has been accompanied by dysuria but denies any other associated symptoms including headache, lightheaded ness, fever, chills, chest pain, palpitations, nausea, vomiting, diarrhea, constipation, hematuria, urinary frequency or urgency, and denies any testicular pain or swelling. Patient underwent full evaluation in the emergency department. CT abdomen and pelvis with contrast was completed which revealed a 2-3 mm obstructing left proximal to mid ureter calculi with mild right-sided hydronephrosis and moderate left-sided retroperitoneal fluid suggestive of ruptured fornix related to obstructive uropathy, as well as persistent 3.4 x 2.4 cm oval circumscribed anterior midline upper abdominal heterogeneous mass similar or slightly larger in size from prior CT completed 03/02/21. EKG completed showing sinus rhythm at 62 bpm with a first-degree AV block with TX interval of [address] elevation in leads 2, 3, and aVF unchanged from previous EKG completed 12/22/20 upon personal review and interpretation. Labs completed and reviewed. CBC, coags, and CMP showing no significant abnormaliti es with the exception of mildly elevated BUN at 27 and hyperglycemia with glucose of 175. Lipase was completed and elevated at 359. Initial lactate 2.4 and patient given a 2L bolus of 0.9% normal saline with repeat lactate of 0.8. Urinalysis positive for protein, ketones, and RBCs but negative for infection. Discussed thoroughly with the ED provider and patient being admitted to our services with consultation to urology. Patient scheduled to undergo cystoscopy later this morning. Physical exam: Vital signs reviewed and stable. General: Nontoxic, no distress and appears stated age. Derm: Skin warm and dry, normal coloration for ethnicity. Head: Atraumatic, normocephalic and symmetric. Eyes: EOMs intact, no lid lag, and anicteric sclera Mouth: no lip lesions, mucus membranes moist Cardiovascular: regular rate and rhythm with normal S1S2, systolic murmur, positive posterior tibial pulses bilaterally, and cap refill < 2 seconds. Lungs: Respirations even, regular, and unlabored on room air. Lungs CTA bilaterally, no rhonchi, no rales, no wheezing, and no accessory muscle usage. Abdominal: soft, mild tenderness to suprapubic region and left lower flank, no guarding, no appreciable organomegaly. Dixon catheter in place. Ext: ROM intact. No gross muscle atrophy, no edema, no contractures Neuro: Speech clear, face symmetrical and CN II-XII grossly intact with no noted focal neuro deficits Psych: Alert and oriented to person, place, time, and situation. Appropriate and pleasant affect. Assessment and Plan of Care: Morning labs reviewed. CBC revealing a stable normocytic anemia with hemoglobin of 12.2. BMP showing no significant abnormalities. Patient is scheduled to undergo cystoscopy later today. Obstructive left ureter calculi Right-sided hydronephrosis Left-sided Flank pain secondary to above History of prostate cancer Abdominal heterogeneous mass Lactic acidosis, resolved after IV fluid hydration -CT abdomen and pelvis with contrast was completed which revealed a 2-3 mm obstructing left proximal to mid ureter calculi with mild right-sided hydrone phrosis and moderate left-sided retroperitoneal fluid suggestive of ruptured fornix related to obstructive uropathy, as well as persistent 3.4 x 2.4 cm oval circumscribed anterior midline upper abdominal heterogeneous mass similar or slightly larger in size from prior CT completed 03/02/21. -EKG completed showing sinus rhythm at 62 bpm with a first-degree AV block with TX interval of [address] elevation in leads 2, 3, and aVF unchanged from previous EKG completed 12/22/20 upon personal review and interpretation. -Labs completed and reviewed. CBC, coags, and CMP showing no significant abnormalities with the exception of mildly elevated BUN at 27 and hyperglycemia with glucose of 175. Lipase was completed and elevated at 359. -Initial lactate 2.4 and patient given a 2L bolus of 0.9% normal saline with repeat lactate of 0.8. -Urinalysis positive for protein, ketones, and RBCs but negative for infection. -Urology following and planning to take patient for cystoscopy later today. -Recommend patient to continue following up outpatient for monitoring of previously known abdominal heterogeneous mass -Dixon catheter remains to dependent drainage and patient has a documented urinary output of 900 mL over the past 24 hours. -Patient to maintain NPO status until completion of cystoscopy and then may advance to regular diet -Continue gentle IV fluid hydration with 0.9% normal saline, may discontinue once completion of cystoscopy. CODE STATUS: Full code DVT prophylaxis: Lovenox Discussed with: Patient and RN Anticipated discharge date: Clinical course to determine Anticipated discharge place: Home Patient was seen independently by Nurse Practitioner. This document was prepared using [employer] dictation software. Please allow for errors in director of admissions while rare they do occur. Rell Duarte [employer] rendered care for this patient independently, reviewed the findings and plan as documented in the note above. I did not physically speak with or examine the patient on this date. Objective - Vital Signs Vital signs: Vital Signs Temp 98 F 08/17/22 15:51 Pulse 58 L 08/17/22 15:51 Resp 20 08/17/22 15:51 BP 169/90 08/17/22 15:51 Pulse Ox 94 L 08/17/22 15:51 FiO2 Intake & Output 08/16/22 08/17/22 08/17/22 18:59 06:59 18:59 Intake Total 1200 650 Output Total 148 900 335 Balance -148 300 315 Weight 68.039 kg 68.039 kg Intake: IV 650 Intake, IV Titration 1200 Amount Sodium Chloride 0.9% 1, 1200 000 ml @ 100 mls/hr IV . Q10H [facility] Rx#:[id number] Output: Urine 900 325 Post Void Residual 148 Estimated Blood Loss 10 Other: Voiding Method Indwelling Catheter Indwelling Catheter - Labs CBC & Chem 7: 08/17/22 06:20 08/17/22 06:20 Labs: Abnormal Lab Results - Last 24 Hours (Table) 08/17/22 08/17/22 Range/Units 06:20 06:20 RBC 3.90 L (4.40-5.60) X 10*6/uL Hgb 12.2 L (13.0-17.0) g/dL Hct 37.5 L (39.6-50.0) % Chloride 110 H (96-109) mmol/L Anion Gap 5.60 L (10.00-18.00) mmol/L BUN/Creatinine Ratio 21.33 H (12.00-20.00) Ratio Total Protein 5.4 L (6.2-8.2) g/dL Albumin 3.4 L (3.8-4.9) g/dL
[2022-08-18] MEDS: HYDROmorphone 0.5 MG/0.5 ML SYRINGE IVP PRN ×3 (02:21→10:46)
[2022-08-18] MEDS: ENOXAPARIN 40 MG/0.4 ML SYRINGE SQ SCH (07:50)
[2022-08-18] MEDS: ARTIFICIAL TEARS-HYPROMELLOSE DROPS 15 ML BTL BOTH EYES SCH ×2 (08:18→20:04)
--- NOTE | 2022-08-18 10:19 | P.PN ---
Subjective Progress Note Date: 08/18/22 Principal diagnosis: Left perinephric urinoma secondary to obstructing left ureteral calculus The patient is an 87-year-old white male who experienced acute onset of abdominal and left flank pain. He presented to the ER for evaluation. CT scan shows evidence of left hydronephrosis with a left flank urinoma due to a ruptured fornix, resulting from a 3 mm left proximal ureteral calculus. He is feeling somewhat better at this time. He denies any prior history of urolithiasis. He is currently receiving androgen deprivation therapy for prostate cancer, which was diagnosed in 2019. 08/17 The patient went to the OR and underwent a cystoscopy, left retrograde pyelogram, left ureteroscopy with Holmium laser lithotripsy and stone basketing, left ureteral stent insertion, and fulguration of vesicle neck bleeder with Dr. Barrera. The patient tolerated the procedure well and was taken to the recovery room in stable condition. Objective - Vital Signs Vital signs: Vital Signs Temp 98.3 F 08/18/22 06:55 Pulse 76 08/18/22 06:55 Resp 18 08/18/22 06:55 BP 166/90 08/18/22 06:55 Pulse Ox 94 L 08/18/22 06:55 FiO2 Intake & Output 08/17/22 08/18/22 08/18/22 18:59 06:59 18:59 Intake Total 650 590 Output Total 335 800 Balance 315 -210 Intake: IV 650 Oral 590 Output: Urine 325 800 Estimated Blood Loss 10 Other: Voiding Method Indwelling Catheter Toilet Urinal # Voids 1 1 - Exam General: Well developed, well nourished. No acute distress. HEENT: Head is atraumatic, normocephalic. Lungs: Respirations even and nonlabored. Abdomen/GI: Soft, non-distended. No guarding, rigidity, or abdominal tenderness. Mild left CVA tenderness - improved. : No suprapubic tenderness. Skin: Warm and dry Neurologic: Alert and oriented 3, CN II-XII grossly intact. No focal deficits. Psychiatric: Appropriate mood and affect. - Labs CBC & Chem 7: 08/18/22 06:56 08/18/22 06:56 Assessment and Plan Assessment: POD #1 the patient is awake, alert, and eating breakfast. He reports that his left flank pain has improved significantly. The patient is able to void without difficulty. No hematuria at this time. From a urological standpoint, the patient may be discharged today. He is to follow-up in our office with Dr. Castillo in 2 weeks for stent removal. (1) Left ureteral calculus Current Visit: Yes Status: Acute Code(s): N20.1 - CALCULUS OF URETER SNOMED Code(s): 38584072 Plan: - The patient may be discharged from a urological standpoint - Follow up with Dr. Castillo in 2 weeks - Continue Flomax Impression and plan of care have been directed as dictated by the signing physician. Janay Allen nurse practitioner acting as scribe for signing physician. Janay Allen [facility] Palliative Care/Urology Spectralink [id number] Email: [email or web address] I have personally seen and examined the patient, reviewed the documentation and agree with the assessment and plan as written. Number of minutes spent on the visit: 20. Quang Barrera MD
[2022-08-18 10:40] LABS: HCT 42.3 % (39.6-50.0); HGB 13.9 g/dL (13.0-17.0); MCH 30.9 pg (27.0-32.0); MCHC 32.9 g/dL (32.0-37.0); Mean Platelet Volume 10.6 fL (9.5-12.2); NRBC Per 100 WBC 0 /100 WBCS (0.0-0.0); Platelet Count 251 X 10*3/uL (140-440); RDW 12.6 % (11.5-14.5); WBC 12.47 X 10*3/uL (4.50-10.00)
[2022-08-18 11:01] LABS: African American GFR (CKD) 62.6 (60.0-200.0); Albumin 4.1 g/dL (3.8-4.9); Albumin/Globulin Ratio 1.71 (1.60-3.17); Anion Gap 14.5 mmol/L (10.00-18.00); BUN/Creat Ratio 14.75 Ratio (12.00-20.00); Blood Urea Nitrogen 17.7 mg/dL (9.0-27.0); Calcium 9.6 mg/dL (8.7-10.3); Carbon Dioxide 19.5 mmol/L (20.0-27.5); Globulin 2.4 g/dL (1.6-3.3); Potassium 4.3 mmol/L (3.5-5.5); Total Bilirubin 0.9 mg/dL (0.30-1.20); Total Protein 6.5 g/dL (6.2-8.2)
[2022-08-18] MEDS ORDERED: MAG HYDROX/AL HYDROX/SIMETH 30 ML, HYOSCYAMINE ELIXIR 10 ML, LIDOCAINE VISCOUS 2% 10 ML PO ONE ×3 (12:00)
--- NOTE | 2022-08-18 14:36 | P.PN ---
Subjective Progress Note Date: 08/18/22 Hospital course: Patient is a very pleasant 87-year-old male with a past medical history of prostate cancer and kidney stones. He presented to the emergency department with a chief complaint of abdominal and left lower flank pain. Patient states symptoms were sudden onset and severe similar to previous episodes of kidney stones. He reports abdominal and left lower flank pain has been accompanied by dysuria but denies any other associated symptoms including headache, lightheadedness, fever, chills, chest pain, palpitations, nausea, vomiting, diarrhea, constipation, hematuria, urinary frequency or urgency, and denies any testicular pain or swelling. Patient underwent full evaluation in the emergency department. CT abdomen and pelvis with contrast was completed which revealed a 2-3 mm obstructing left proximal to mid ureter calculi with mild right-sided hydronephrosis and moderate left-sided retroperitoneal fluid suggestive of ruptured fornix related to obstructive uropathy, as well as persistent 3.4 x 2.4 cm oval circumscribed anterior midline upper abdominal heterogeneous mass similar or slightly larger in size from prior CT completed 03/02/21. EKG completed showing sinus rhythm at 62 bpm with a first-degree AV block with TX interval of [address] elevation in leads 2, 3, and aVF unchanged from previous EKG completed 12/22/20 upon personal review and interpretation. Labs completed and reviewed. CBC, coags, and CMP showing no significant abnormalities with the exception of mildly elevated BUN at 27 and hyperglycemia with glucose of 175. Lipase was completed and elevated at 359. Initial lactate 2.4 and patient given a 2L bolus of 0.9% normal saline with repeat lactate of 0.8. Urinalysis positive for protein, ketones, and RBCs but negative for infection. Discussed thoroughly with the ED provider and patient being admitted to our services with consultation to urology. Patient underwent cystoscopy with left retrograde pyelogram, stent placement and laser lithotripsy on 08/17/22. Physical exam: Patient seen and fully evaluated at bedside this morning. Patient reports pain is "terrible" this morning. Patient reports pain radiating from left upper flank all the way down into his groin this morning. He denies having any difficulties with urination. Vital signs reviewed and stable. General: Nontoxic, no distress and appears stated age. Derm: Skin warm and dry, normal coloration for ethnicity. Head: Atraumatic, normocephalic and symmetric. Eyes: EOMs intact, no lid lag, and anicteric sclera Mouth: no lip lesions, mucus membranes moist Cardiovascular: regular rate and rhythm with normal S1S2, systolic murmur, positive posterior tibial pulses bilaterally, and cap refill < 2 seconds. Lungs: Respirations even, regular, and unlabored on room air. Lungs CTA bilaterally, no rhonchi, no rales, no wheezing, and no accessory muscle usage. Abdominal: soft, mild tenderness to suprapubic region and left lower flank, no guarding, no appreciable organomegaly. Dixon catheter in place. Ext: ROM intact. No gross muscle atrophy, no edema, no contractures Neuro: Speech clear, face symmetrical and CN II-XII grossly intact with no noted focal neuro deficits Psych: Alert and oriented to person, place, time, and situation. Appropriate and pleasant affect. Assessment and Plan of Care: Morning labs reviewed. CBC revealing leukocytosis with WBC count of 12.47 and BMP is stable but did show slight elevation in renal function with BUN of 17.7, creatinine of 1.2, and GFR 54 when compared to yesterday's labs showing BUN 19.2, creatinine 0.9, and GFR of 76.5. Documented urinary output over the past 24 hours was 1125 mL. Obstructive left ureter calculi Right-sided hydronephrosis Left-sided Flank pain secondary to above History of prostate cancer Abdominal heterogeneous mass Lactic acidosis, resolved after IV fluid hydration -Urology following and took patient for cystoscopy with left retrograde pyelogram, stent placement and laser lithotripsy on 08/17/22. Discussed i ncreased pain with urology CASINO MANAGER as well as slight decrease in renal function. -Patient started on scheduled Toradol 15 mg IVP every 6 hours in addition to as needed Dilaudid. -Patient also started on Flomax 0.4 mg daily at this time. -Status post urological procedure patient did have a slight elevation in renal function with BUN of 17.7, creatinine of 1.2, and GFR 54 when compared to labs drawn 08/17/22 showing BUN 19.2, creatinine 0.9, and GFR of 76.5. -Secondary to stable but slight decline in renal function, patient was started on gentle IV fluid hydration with 0.9% normal saline at 100 mL's per hour. -Documented urinary output over the past 24 hours was 1125 mL. Dixon catheter has been removed and patient has been urinating without any reported post void residuals at this time. -Patient does report increased pain today than he did previously prior to procedure. -Recommend patient to continue following up outpatient for monitoring of previously known abdominal heterogeneous mass CODE STATUS: Full code DVT prophylaxis: Lovenox Discussed with: Patient, urology CASINO MANAGER and RN Anticipated discharge date: Clinical course to determine Anticipated discharge place: Home Patient was seen independently by Nurse Practitioner. This document was prepared using [employer] dictation software. Please allow for errors in glass tube bender while rare they do occur. Objective - Vital Signs Vital signs: Vital Signs Temp 98.3 F 08/18/22 06:55 Pulse 76 08/18/22 06:55 Resp 18 08/18/22 06:55 BP 166/90 08/18/22 06:55 Pulse Ox 94 L 08/18/22 06:55 FiO2 Intake & Output 08/17/22 08/18/22 08/18/22 18:59 06:59 18:59 Intake Total 650 590 Output Total 335 800 Balance 315 -210 Intake: IV 650 Oral 590 Output: Urine 325 800 Estimated Blood Loss 10 Other: Voiding Method Indwelling Catheter Toilet Urinal # Voids 1 1 - Labs CBC & Chem 7: 08/18/22 06:56 08/18/22 06:56
[2022-08-18] MEDS: KETOROLAC 15 MG/ML 1 ML VIAL IVP SCH ×2 (14:39→20:03)
[2022-08-18] MEDS: TAMSULOSIN 0.4 MG CAP.ER.24H PO SCH (14:39)
[2022-08-18] MEDS: SODIUM CHLORIDE 0.9% 1,000 ML IV SCH (14:39)
[2022-08-19] MEDS: KETOROLAC 15 MG/ML 1 ML VIAL IVP SCH ×3 (03:35→15:30)
[2022-08-19] MEDS: SODIUM CHLORIDE 0.9% 1,000 ML IV SCH ×2 (03:37→11:31)
[2022-08-19 07:44] VITALS: PULSE 72; RESP 18
[2022-08-19] MEDS: TAMSULOSIN 0.4 MG CAP.ER.24H PO SCH (08:41)
[2022-08-19] MEDS: ARTIFICIAL TEARS-HYPROMELLOSE DROPS 15 ML BTL BOTH EYES SCH (08:42)
[2022-08-19] MEDS: ENOXAPARIN 40 MG/0.4 ML SYRINGE SQ SCH (08:42)
[2022-08-19 11:12] LABS: HGB 12.5 g/dL (13.0-17.0); MCH 30.6 pg (27.0-32.0); MCHC 32.1 g/dL (32.0-37.0); MCV 95.6 fL (80.0-97.0); Mean Platelet Volume 10.9 fL (9.5-12.2); NRBC Per 100 WBC 0 /100 WBCS (0.0-0.0); Platelet Count 200 X 10*3/uL (140-440); RBC 4.08 X 10*6/uL (4.40-5.60); RDW 12.5 % (11.5-14.5); WBC 8.37 X 10*3/uL (4.50-10.00)
[2022-08-19 11:43] LABS: African American GFR (CKD) 78.1 (60.0-200.0); Albumin 3.5 g/dL (3.8-4.9); Albumin/Globulin Ratio 1.52 (1.60-3.17); Anion Gap 8.9 mmol/L (10.00-18.00); BUN/Creat Ratio 23.4 Ratio (12.00-20.00); Blood Urea Nitrogen 23.4 mg/dL (9.0-27.0); Calcium 8.8 mg/dL (8.7-10.3); Carbon Dioxide 23.1 mmol/L (20.0-27.5); Globulin 2.3 g/dL (1.6-3.3); Non-African American GFR(CKD) 67.4 (60.0-200.0); Potassium 4.6 mmol/L (3.5-5.5); Total Bilirubin 0.8 mg/dL (0.30-1.20); Total Protein 5.8 g/dL (6.2-8.2)
[2022-08-19 12:51] VITALS: BP 149/83; TEMP 97.8
[2022-08-19] MEDS ORDERED: bisacodyL 5 MG TABLET.DR PO PRN (14:02)
--- NOTE | 2022-08-19 14:07 | P.PN ---
Subjective Progress Note Date: 08/19/22 Principal diagnosis: Left perinephric urinoma secondary to obstructing left ureteral calculus The patient is an 87-year-old white male who experienced acute onset of abdominal and left flank pain. He presented to the ER for evaluation. CT scan shows evidence of left hydronephrosis with a left flank urinoma due to a ruptured fornix, resulting from a 3 mm left proximal ureteral calculus. He is feeling somewhat better at this time. He denies any prior history of urolithiasis. He is currently receiving androgen deprivation therapy for prostate cancer, which was diagnosed in 2019. 08/17 The patient went to the OR and underwent a cystoscopy, left retrograde pyelogram, left ureteroscopy with Holmium laser lithotripsy and stone basketing, left ureteral stent insertion, and fulguration of vesicle neck bleeder with Dr. Barrera. The patient tolerated the procedure well and was taken to the recovery room in stable condition. 08/18 The patient is feeling better since his stone was removed and a ureteral stent was placed. Objective - Vital Signs Vital signs: Vital Signs Temp 97.8 F 08/19/22 12:07 Pulse 72 08/19/22 12:07 Resp 18 08/19/22 12:07 BP 149/83 08/19/22 12:07 Pulse Ox 97 08/19/22 12:07 FiO2 Intake & Output 08/18/22 08/19/22 08/19/22 18:59 06:59 18:59 Intake Total 480 1200 Output Total 550 225 300 Balance -70 975 -300 Intake: Intake, IV Titration 1200 Amount Sodium Chloride 0.9% 1, 1200 000 ml @ 100 mls/hr IV . Q[facility]H [facility] Rx#:[id number] Oral 480 Output: Urine 550 225 300 Other: Voiding Method Toilet Toilet Urinal Urinal # Voids 1 1 - Exam General: Well developed, well nourished. No acute distress. HEENT: Head is atraumatic, normocephalic. Lungs: Respirations even and nonlabored. Abdomen/GI: Soft, non-distended. No guarding, rigidity, or abdominal tenderness. Mild left CVA tenderness - improved. : No suprapubic tenderness. Skin: Warm and dry Neurologic: Alert and oriented 3, CN II-XII grossly intact. No focal deficits. Psychiatric: Appropriate mood and affect. - Labs CBC & Chem 7: 08/19/22 07:42 08/19/22 08:00 Labs: Abnormal Lab Results - Last 24 Hours (Table) 08/19/22 08/19/22 Range/Units 07:42 08:00 RBC 4.08 L (4.40-5.60) X 10*6/uL Hgb 12.5 L (13.0-17.0) g/dL Hct 39.0 L (39.6-50.0) % Anion Gap 8.90 L (10.00-18.00) mmol/L BUN/Creatinine Ratio 23.40 H (12.00-20.00) Ratio Total Protein 5.8 L (6.2-8.2) g/dL Albumin 3.5 L (3.8-4.9) g/dL Albumin/Globulin Ratio 1.52 L (1.60-3.17) g/dL Assessment and Plan Assessment: POD #2 the patient is awake and alert. He denies nausea but states that he has no appetite. He reports that his left flank pain has improved significantly. The patient is able to void without difficulty, though he is experiencing urgency. No hematuria at this time. He states that he has not had a bowel movement since 08/15/2022. He normally takes oral Dulcolax daily. (1) Left ureteral calculus Current Visit: Yes Status: Acute Code(s): N20.1 - CALCULUS OF URETER SNOMED Code(s): 32489895 Plan: - Oral Dulcolax has been ordered. - The patient was reassured that constipation is, as a result of a urinoma, which results in a paralytic ileus. With a stent in place, I anticipate resolution of this over the next couple of days. - The patient may be discharged from a urological standpoint once medically stable, and he will follow up with Dr. Castillo in 2 weeks for office cystoscopy with stent removal. - Continue Flomax
--- NOTE | 2022-08-19 14:23 | P.DS ---
Providers Date of admission: 08/16/22 14:47 Expected date of discharge: 08/19/22 Attending physician: Tia Alvarado DO Consults: 08/16/22 14:35 Consult Physician Urgent Consulting Provider: Quang Barrera Consult Reason/Comments: Obstructing left-sided kidney stone Do you want consulting provider notified?: Already Contacted Primary care physician: Antonietta Symmes Hospital Course: Discharge Diagnosis: Hydronephrosis with urinary obstruction due to ureteral calculus. Patient underwent cystoscopy with left retrograde pyelogram, stent placement and laser lithotripsy on 08/17/22. He was started on Flomax and Toradol. Patient urinating independently without any difficulties with no signs of urinary retention. Pain in left flank has been controlled. Renal function was monitored closely. On day of discharge renal function showing BUN 23.4, creatinine 1.0, and GFR of 67.4. Patient was cleared by urology to follow-up outpatient in the office in 2 weeks for removal of stent. History of prostate cancer Abdominal heterogeneous mass. Recommend patient to continue following up outpatient for monitoring of previously known abdominal heterogeneous mass. Lactic acidosis, resolved after IV fluid hydration Hospital Course: Patient is a very pleasant 87-year-old male with a past medical history of prostate cancer and kidney stones. He presented to the emergency department with a chief complaint of abdominal and left lower flank pain. Patient states symptoms were sudden onset and severe similar to previous episodes of kidney stones. He reports abdominal and left lower flank pain has been accompanied by dysuria but denies any other associated symptoms including headache, lightheadedness, fever, chills, chest pain, palpitations, nausea, vomiting, diarrhea, constipation, hematuria, urinary frequency or urgency, and denies any testicular pain or swelling. Patient underwent full evaluation in the emergency department. CT abdomen and pelvis with contrast was completed which revealed a 2-3 mm obstructing left proximal to mid ureter calculi with mild right-sided hydronephrosis and moderate left-sided retroperitoneal fluid suggestive of ruptured fornix related to obstructive uropathy, as well as persistent 3.4 x 2.4 cm oval circumscribed anterior midline upper abdominal heterogeneous mass similar or slightly larger in size from prior CT completed 03/02/21. EKG completed showing sinus rhythm at 62 bpm with a first-degree AV block with MD interval of [address] elevation in leads 2, 3, and aVF unchanged from previous EKG completed 12/22/20 upon personal review and interpretation. Labs completed and reviewed. CBC, coags, and CMP showing no significant abnormalities with the exception of mildly elevated BUN at 27 and hyperglycemia with glucose of 175. Lipase was completed and elevated at 359. Initial lactate 2.4 and patient given a 2L bolus of 0.9% normal saline with repeat lactate of 0.8. Urinalysis positive for protein, ketones, and RBCs but negative for infection. Discussed thoroughly with the ED provider and patient being admitted to our services with consultation to urology. Patient underwent cystoscopy with left retrograde pyelogram, stent placement and laser lithotripsy on 08/17/22. He was started on Flomax and Toradol. Patient urinating independently without any difficulties with no signs of urinary retention. Pain in left flank has been controlled. Renal function was monitored closely. On day of discharge renal function showing BUN 23.4, creatinine 1.0, and GFR of 67.4. Patient was cleared by urology to follow-up outpatient in the office in 2 weeks for removal of stent. Medically, patient is stable for discharge. Discussed discharge plans with patient and his son at bedside. Physical exam: Patient seen and fully evaluated at bedside this morning. Patient reports pain is controlled and he denies any difficulties with urination or any other complaints at this time. Vital signs reviewed and stable. General: Nontoxic, no distress and appears stated age. Derm: Skin warm and dry, normal coloration for ethnicity. Head: Atraumatic, normocephalic and symmetric. Eyes: EOMs intact, no lid lag, and anicteric sclera Mouth: no lip lesions, mucus membranes moist Cardiovascular: regular rate and rhythm with normal S1S2, systolic murmur, positive posterior tibial pulses bilaterally, and cap refill < 2 seconds. Lungs: Respirations even, regular, and unlabored on room air. Lungs CTA bilaterally, no rhonchi, no rales, no wheezing, and no accessory muscle usage. Abdominal: soft, no tenderness upon palpation, no guarding, no appreciable organomegaly. Ext: ROM intact. No gross muscle atrophy, no edema, no contractures Neuro: Speech clear, face symmetrical and CN II-XII grossly intact with no noted focal neuro deficits Psych: Alert and oriented to person, place, time, and situation. Appropriate and pleasant affect. A total of 31 minutes of time were spent preparing this complex discharge summary. Pt was discharged on 08/19/22 at 2:21 PM. Patient was seen independently by Nurse Practitioner. This document was prepared using [employer] dictation software. Please allow for errors in criminal justice social worker while rare they do occur. I reviewed the documentation as provided by the JUAN above, who is the original author of this note. I agree with the documented assessment and plan, with the following changes: none Patient Condition at Discharge: Stable Plan - Discharge Summary Discharge Rx Participant: No New Discharge Prescriptions: New Tamsulosin HCl [Flomax] 0.4 mg PO AC-SUPPER 14 Days #14 capsule Ketorolac [Toradol] 10 mg PO Q6HR PRN #12 tab PRN Reason: Pain Continue Potassium Gluconate [Potassium Gluconate ER] 99 mg PO Q2D [place]-3 Fatty Acids/Fish Oil [Fish Oil 1,000 mg Softgel] 1 cap PO Q2D Aspirin EC [Ecotrin Low Dose] 81 mg PO Q3D bisacodyL [Dulcolax] 5 mg PO DAILY Cholecalciferol [Vitamin D3 (25 Mcg = 1000 Iu)] 25 mcg PO DAILY Carboxymethylcellulose Sodium [Refresh Tears] 1 drop BOTH EYES BID Discharge Medication List Aspirin EC [Ecotrin Low Dose] 81 mg PO Q3D 12/22/20 [History] [place]-3 Fatty Acids/Fish Oil [Fish Oil 1,000 mg Softgel] 1 cap PO Q2D 12/22/20 [History] Potassium Gluconate [Potassium Gluconate ER] 99 mg PO Q2D 12/22/20 [History] Cholecalciferol [Vitamin D3 (25 Mcg = 1000 Iu)] 25 mcg PO DAILY 05/17/21 [History] bisacodyL [Dulcolax] 5 mg PO DAILY 05/17/21 [History] Carboxymethylcellulose Sodium [Refresh Tears] 1 drop BOTH EYES BID 08/16/22 [History] Ketorolac [Toradol] 10 mg PO Q6HR PRN #12 tab 08/18/22 [Rx] Tamsulosin HCl [Flomax] 0.4 mg PO AC-SUPPER 14 Days #14 capsule 08/18/22 [Rx] Follow up Appointment(s)/Referral(s): Matt Castillo MD [STAFF PHYSICIAN] - 2 Weeks (Office is closed at time of discharge. Please call for appointment.) Antonietta Mcguire [Primary Care Provider] - 1-2 days (Office is closed at time of discharge. Please call for appointment.) Patient Instructions/Handouts: Ketorolac (By mouth), Tamsulosin (By mouth), Cystoscopy (DC), Ureteral Stent Placement (DC), Lithotripsy (DC) Activity/Diet/Wound Care/Special Instructions: Diet as tolerated. Activity as tolerated. Reassure patient that hematuria is normal and expected as long as the ureteral stent is in place. Follow-up in [address] Castillo for office cystoscopy with stent removal. Discharge Disposition: HOME SELF-CARE
== END 2022-08-19 16:26 | disposition home or self-care (01) | DRG 661 ==
LOC: EC 09:14 → 1SOBS 14:47 → 5NMEDONC 16:05
PROVIDERS: ADMIT Internal Medicine; ATTEND Internal Medicine
PROC: 0TC78ZZ Extirpation of Matter from Left Ureter, Via Natural or Artificial Opening Endoscopic (ICD-10-PCS; 2022-08-17)
PROC: 0T778DZ Dilation of Left Ureter with Intraluminal Device, Via Natural or Artificial Opening Endoscopic (ICD-10-PCS; principal; 2022-08-17 09:00)
PROC: 0T5C8ZZ Destruction of Bladder Neck, Via Natural or Artificial Opening Endoscopic (ICD-10-PCS; 2022-08-17 09:00)
PROC: BT1F1ZZ Fluoroscopy of Left Kidney, Ureter and Bladder using Low Osmolar Contrast (ICD-10-PCS; 2022-08-17 09:00)
DX: N13.2 Hydronephrosis with renal and ureteral calculous obstruction (principal); I44.0 Atrioventricular block, first degree; R73.9 Hyperglycemia, unspecified; C61 Malignant neoplasm of prostate; Z87.442 Personal history of urinary calculi; Z88.1 Allergy status to other antibiotic agents; Z98.42 Cataract extraction status, left eye; Z98.41 Cataract extraction status, right eye; Z87.19 Personal history of other diseases of the digestive system
CPT/HCPCS: 36415; 51798; 74177; 80053; 81001; 82150; 82365; 83605; 83690; 83735; 85025; 85027; 85610; 85730; 93005; 96361; 96374; 96376; 99285

== ENCOUNTER 2022-08-20 16:04 | Emergency (ER) | payer MEDICARE ==
--- NOTE | 2022-08-20 16:18 | ED ---
General Adult HPI - General Chief complaint: Weakness Stated complaint: AMS,Dizzy Time Seen by Provider: 08/20/22 16:13 Source: patient, family Mode of arrival: wheelchair Limitations: no limitations - History of Present Illness Initial comments: Patient presents to the ED with his son for evaluation. Patient underwent a cystoscopy with lithotripsy and left ureteral stent placement, performed by Dr. Barrera (urology), 3 days ago, and he was just discharged home yesterday. Patient reports that he has felt tremulous and has had "chills" today. Patient also states that he has felt generally weak and lightheaded today, and he states that he has not had much of an appetite today. Patient states that he has been urinating small amounts. Patient denies having any pain, measured fever, headache, focal numbness/weakness/neuro deficit, neck pain or stiffness, sore throat, cough or cold symptoms, chest pain, dyspnea, palpitations, syncope, abdominal pain, back or flank pain, nausea/vomiting/diarrhea, bloody or melanotic stool, dysuria, hematuria, leg or calf swelling or pain, or any other symptoms or complaints. - Related Data Home Medications Medication Instructions Recorded Confirmed Aspirin EC [Ecotrin Low Dose] 81 mg PO Q3D 12/22/20 08/20/22 [place]-3 Fatty Acids/Fish Oil [Fish 1 cap PO Q2D 12/22/20 08/20/22 Oil 1,000 mg Softgel] Potassium Gluconate [Potassium 99 mg PO Q2D 12/22/20 08/20/22 Gluconate ER] Cholecalciferol [Vitamin D3 (25 25 mcg PO DAILY 05/17/21 08/20/22 Mcg = 1000 Iu)] bisacodyL [Dulcolax] 5 mg PO DAILY 05/17/21 08/20/22 Carboxymethylcellulose Sodium 1 drop BOTH EYES BID 08/16/22 08/20/22 [Refresh Tears] Previous Rx's Medication Instructions Recorded Ketorolac [Toradol] 10 mg PO Q6HR PRN #12 tab 08/18/22 Tamsulosin HCl [Flomax] 0.4 mg PO AC-SUPPER 14 Days #14 08/18/22 capsule Ciprofloxacin HCl [Cipro] 500 mg PO Q12HR 7 Days #14 tablet 08/20/22 Allergies Allergy/AdvReac Type Severity Reaction Status Date / Time amoxicillin Allergy Unknown Verified 08/20/22 19:03 Review of Systems ROS Statement: Those systems with pertinent positive or pertinent negative responses have been documented in the HPI. ROS Other: All systems not noted in ROS Statement are negative. Past Medical History Past Medical History: Cancer, Eye Disorder, Prostate Disorder Additional Past Medical History / Comment(s): hx. prostate cancer 2020-getting hormone injections, kidney stones, cataracts History of Any Multi-Drug Resistant Organisms: None Reported Past Surgical History: Hernia Repair Additional Past Surgical History / Comment(s): prostate biopsy,rt cataract, kidney stent Past Anesthesia/Blood Transfusion Reactions: No Reported Reaction Past Psychological History: No Psychological Hx Reported Smoking Status: Never smoker - Past Family History Mother Family Medical History: No Reported History Daughter(s) Family Medical History: Cancer Additional Family Medical History / Comment(s): breast General Exam Limitations: no limitations General appearance: alert, in no apparent distress Head exam: Present: atraumatic, normocephalic Eye exam: Present: normal appearance, PERRL, EOMI ENT exam: Present: mucous membranes moist Neck exam: Present: other (Trachea is in midline). Absent: tenderness, meningismus Respiratory exam: Present: normal lung sounds bilaterally. Absent: respiratory distress, wheezes, rales, rhonchi, stridor Cardiovascular Exam: Present: regular rate, normal rhythm, normal heart sounds, other (Normal radial pulses bilaterally) GI/Abdominal exam: Present: soft. Absent: distended, tenderness, guarding Extremities exam: Absent: tenderness, pedal edema, calf tenderness Back exam: Absent: CVA tenderness (R), CVA tenderness (L) Neurological exam: Present: alert, oriented X3, CN II-XII intact. Absent: motor sensory deficit Psychiatric exam: Present: normal affect, normal mood Skin exam: Present: warm, dry, intact, normal color Course Vital Signs 08/20/22 08/20/22 08/20/22 16:06 17:44 19:20 Temperature 99.4 F 98.6 F Pulse Rate 93 87 Respiratory 20 18 Rate Blood Pressure 158/78 127/74 O2 Sat by Pulse 93 L Oximetry - Reevaluation(s) Reevaluation #1: 08/20/22 19:20 Case, H&P, test results and ED management thus far were discussed with Dr. Barrera (urology). He agrees with plan to start the patient on a course of antibiotics for suspected UTI and discharge patient home at this time with instructions to follow up with Dr. Castillo (urology) as planned. He has no further recommendations at this time. 08/20/22 19:25 Patient's temperature is now 98.6F. Patient denies development of any new symptoms while in the ED. Patient remains alert and breathing comfortably. Patient and son are aware the patient's test results, as well as my discussion with Dr. Barrera as above. They feel comfortable with the patient being discharged home at this time. They were counseled about UTIs, and they were clearly explained return and follow-up instructions. EKG Findings - EKG Comments: EKG Findings:: ED physician interpretation: Sinus rhythm with first-degree AV block, ventricular rate of 83 bpm, no ectopy, MD interval of 222 ms, normal QRS duration, normal QT interval, normal axis, no ST or T-wave abnormality Medical Decision Making - Medical Decision Making Was pt. sent in by a medical professional or institution (, PA, CLERICAL SUPPORT SPECIALIST, urgent c are, hospital, or fdc...) When possible be specific @ -[No] Did you speak to anyone other than the patient for history (EMS, parent, family, police, friend...)? What history was obtained from this source @ -[No] Did you review nursing and triage notes (agree or disagree)? Why? @ -[I reviewed and agree with nursing and triage notes] Were old charts reviewed (outside hosp., previous admission, EMS record, old EKG, old radiological studies, urgent care reports/EKG's, fdc records)? Report findings @ -[No old charts were reviewed] Differential Diagnosis (chest pain, altered mental status, abdominal pain women, abdominal pain men, vaginal bleeding, weakness, fever, dyspnea, syncope, headache, dizziness, GI bleed, back pain, seizure, CVA, palpatations, mental health, musculoskeletal)? @ -Differential Weakness: Hypoglycemia, hyperglycemia, shock, sepsis, hyponatremia, anemia, infection, UTI, pneumonia, viral illness, [place], adverse medicine reaction, this is not meant to be an all-inclusive list. EKG interpreted by me (3pts min.). @ -[As above] X-rays interpreted by me (1pt min.). @ -[Chest x-ray was reviewed myself, and I agree with the radiologist's interpretation as above.] CT interpreted by me (1pt min.). @ -[Noncontrast CT abdomen/pelvis was reviewed myself, and I agree with the radiologist's interpretation as above.] U/S interpreted by me (1pt. min.). @ -[None done] What testing was considered but not performed or refused? (CT, X-rays, U/S, labs)? Why? @ -[None] What meds were considered but not given or refused? Why? @ -[None] Did you discuss the management of the patient with other professionals (professionals i.e. Dr., PA, CLERICAL SUPPORT SPECIALIST, lab, RT, psych nurse, social sciences instructor, labor relations analyst, teacher, air defense artillery officer, casework supervisor)? Give summary @ -[As above. Was smoking cessation discussed for >3mins.? @ -[No] Was critical care preformed (if so, how long)? @ -[No] Were there social determinants of health that impacted care today? How? (Homelessness, low income, unemployed, alcoholism, drug addiction, transportation, low edu. Level, literacy, decrease access to med. care, senior living, rehab)? @ -[No] Was there de-escalation of care discussed even if they declined (Discuss DNR or withdrawal of care, Hospice)? DNR status @ -[No] What co-morbidities impacted this encounter? (DM, HTN, Smoking, COPD, CAD, Cancer, CVA, ARF, Chemo, Hep., AIDS, mental health diagnosis, sleep apnea, morbid obesity)? @ -[None] Was patient admitted / discharged? Hospital course, mention meds given and route, prescriptions, significant lab abnormalities, going to OR and other pertinent info. @ -[Patient was treated with an oral dose of ciprofloxacin in the ED for suspected UTI. I discussed the patient's case with his urologist, Dr. Barrera, who agrees with plan to discharge the patient home with a course of antibiotics and have him follow-up with Dr. Castillo as planned. Patient has been afebrile while in the ED, and he has a normal lactic acid level. Patient home with his son at this time. Patient and son feel comfortable with this plan.] Undiagnosed new problem with uncertain prognosis? @ -[No] Drug Therapy requiring intensive monitoring for toxicity (Heparin, Nitro, Insulin, Cardizem)? @ -[No] Were any procedures done? @ -[No] Diagnosis/symptom? @ -[UTI] Acute, or Chronic, or Acute on Chronic? @ -[Acute] Uncomplicated (without systemic symptoms) or Complicated (systemic symptoms)? @ -[default] Side effects of treatment? @ -[No] Exacerbation, Progression, or Severe Exacerbation? @ -[No] Poses a threat to life or bodily function? How? (Chest pain, [place], [place], pneumonia, PE, COPD, DKA, ARF, appy, cholecystitis, CVA, Diverticulitis, Homicidal, Suicidal, threat to staff... and all critical care pts) @ -[No] Diagnosis/symptom? @ -Generalized weakness Acute, or Chronic, or Acute on Chronic? @ -[Acute] Uncomplicated (without systemic symptoms) or Complicated (systemic symptoms)? @ -[default] Side effects of treatment? @ -[none] Exacerbation, Progression, or Severe Exacerbation] @ -[no] Poses a threat to life or bodily function? @ -[no] - Lab Data Result diagrams: 08/20/22 17:26 08/20/22 17:26 Lab Results 08/20/22 08/20/22 08/20/22 Range/Units 17:26 17:26 17:26 WBC 11.0 H (3.8-10.6) k/uL RBC 3.90 L (4.30-5.90) m/uL Hgb 12.4 L (13.0-17.5) gm/dL Hct 35.6 L (39.0-53.0) % MCV 91.3 (80.0-100.0) fL MCH 31.7 (25.0-35.0) pg MCHC 34.7 (31.0-37.0) g/dL RDW 12.2 (11.5-15.5) % Plt Count 206 (150-450) k/uL MPV 7.8 Neutrophils % 90 % Lymphocytes % 3 % Monocytes % 6 % Eosinophils % 0 % Basophils % 0 % Neutrophils # 9.9 H (1.3-7.7) k/uL Lymphocytes # 0.3 L (1.0-4.8) k/uL Monocytes # 0.6 (0-1.0) k/uL Eosinophils # 0.0 (0-0.7) k/uL Basophils # 0.0 (0-0.2) k/uL PT 10.6 (9.0-12.0) sec INR 1.0 (<1.2) APTT 25.3 (22.0-30.0) sec Sodium (137-145) mmol/L Potassium (3.5-5.1) mmol/L Chloride (98-107) mmol/L Carbon Dioxide (22-30) mmol/L Anion Gap mmol/L BUN (9-20) mg/dL Creatinine (0.66-1.25) mg/dL Est GFR (CKD-EPI)AfAm (>60 ml/min/1.73 sqM) Est GFR (CKD-EPI)NonAf (>60 ml/min/1.73 sqM) Glucose (74-99) mg/dL Plasma Lactic Acid Antolin (0.7-2.0) mmol/L Calcium (8.4-10.2) mg/dL Magnesium (1.6-2.3) mg/dL Total Bilirubin (0.2-1.3) mg/dL AST (17-59) U/L ALT (4-49) U/L Alkaline Phosphatase (38-126) U/L Troponin I (0.000-0.034) ng/mL Total Protein (6.3-8.2) g/dL Albumin (3.5-5.0) g/dL Urine Color Yellow Urine Appearance Cloudy (Clear) Urine pH 6.5 (5.0-8.0) Ur Specific [place] 1.019 (1.001-1.035) Urine Protein 2+ H (Negative) Urine Glucose (UA) Negative (Negative) Urine Ketones 1+ H (Negative) Urine Blood Large H (Negative) Urine Nitrite Positive (Negative) Urine Bilirubin Negative (Negative) Urine Urobilinogen <2.0 (<2.0) mg/dL Ur Leukocyte Esterase Large H (Negative) Urine RBC >182 H (0-5) /hpf Urine WBC >182 H (0-5) /hpf Urine Bacteria Occasional H (None) /hpf Influenza Type A (PCR) (Not Detectd) Influenza Type B (PCR) (Not Detectd) RSV (PCR) (Not Detectd) SARS-CoV-2 (PCR) (Not Detectd) 08/20/22 08/20/22 08/20/22 Range/Units 17:26 17:26 17:26 WBC (3.8-10.6) k/uL RBC (4.30-5.90) m/uL Hgb (13.0-17.5) gm/dL Hct (39.0-53.0) % MCV (80.0-100.0) fL MCH (25.0-35.0) pg MCHC (31.0-37.0) g/dL RDW (11.5-15.5) % Plt Count (150-450) k/uL MPV Neutrophils % % Lymphocytes % % Monocytes % % Eosinophils % % Basophils % % Neutrophils # (1.3-7.7) k/uL Lymphocytes # (1.0-4.8) k/uL Monocytes # (0-1.0) k/uL Eosinophils # (0-0.7) k/uL Basophils # (0-0.2) k/uL PT (9.0-12.0) sec INR (<1.2) APTT (22.0-30.0) sec Sodium 134 L (137-145) mmol/L Potassium 4.1 (3.5-5.1) mmol/L Chloride 105 (98-107) mmol/L Carbon Dioxide 25 (22-30) mmol/L Anion Gap 4 mmol/L BUN 25 H (9-20) mg/dL Creatinine 0.82 (0.66-1.25) mg/dL Est GFR (CKD-EPI)AfAm >90 (>60 ml/min/1.73 sqM) Est GFR (CKD-EPI)NonAf 80 (>60 ml/min/1.73 sqM) Glucose 143 H (74-99) mg/dL Plasma Lactic Acid Antolin 1.1 (0.7-2.0) mmol/L Calcium 8.6 (8.4-10.2) mg/dL Magnesium 1.9 (1.6-2.3) mg/dL Total Bilirubin 1.4 H (0.2-1.3) mg/dL AST 36 (17-59) U/L ALT 22 (4-49) U/L Alkaline Phosphatase 58 (38-126) U/L Troponin I 0.022 (0.000-0.034) ng/mL Total Protein 5.8 L (6.3-8.2) g/dL Albumin 3.1 L (3.5-5.0) g/dL Urine Color Urine Appearance (Clear) Urine pH (5.0-8.0) Ur Specific [place] (1.001-1.035) Urine Protein (Negative) Urine Glucose (UA) (Negative) Urine Ketones (Negative) Urine Blood (Negative) Urine Nitrite (Negative) Urine Bilirubin (Negative) Urine Urobilinogen (<2.0) mg/dL Ur Leukocyte Esterase (Negative) Urine RBC (0-5) /hpf Urine WBC (0-5) /hpf Urine Bacteria (None) /hpf Influenza Type A (PCR) (Not Detectd) Influenza Type B (PCR) (Not Detectd) RSV (PCR) (Not Detectd) SARS-CoV-2 (PCR) (Not Detectd) 08/20/22 Range/Units 17:26 WBC (3.8-10.6) k/uL RBC (4.30-5.90) m/uL Hgb (13.0-17.5) gm/dL Hct (39.0-53.0) % MCV (80.0-100.0) fL MCH (25.0-35.0) pg MCHC (31.0-37.0) g/dL RDW (11.5-15.5) % Plt Count (150-450) k/uL MPV Neutrophils % % Lymphocytes % % Monocytes % % Eosinophils % % Basophils % % Neutrophils # (1.3-7.7) k/uL Lymphocytes # (1.0-4.8) k/uL Monocytes # (0-1.0) k/uL Eosinophils # (0-0.7) k/uL Basophils # (0-0.2) k/uL PT (9.0-12.0) sec INR (<1.2) APTT (22.0-30.0) sec Sodium (137-145) mmol/L Potassium (3.5-5.1) mmol/L Chloride (98-107) mmol/L Carbon Dioxide (22-30) mmol/L Anion Gap mmol/L BUN (9-20) mg/dL Creatinine (0.66-1.25) mg/dL Est GFR (CKD-EPI)AfAm (>60 ml/min/1.73 sqM) Est GFR (CKD-EPI)NonAf (>60 ml/min/1.73 sqM) Glucose (74-99) mg/dL Plasma Lactic Acid Antolin (0.7-2.0) mmol/L Calcium (8.4-10.2) mg/dL Magnesium (1.6-2.3) mg/dL Total Bilirubin (0.2-1.3) mg/dL AST (17-59) U/L ALT (4-49) U/L Alkaline Phosphatase (38-126) U/L Troponin I (0.000-0.034) ng/mL Total Protein (6.3-8.2) g/dL Albumin (3.5-5.0) g/dL Urine Color Urine Appearance (Clear) Urine pH (5.0-8.0) Ur Specific [place] (1.001-1.035) Urine Protein (Negative) Urine Glucose (UA) (Negative) Urine Ketones (Negative) Urine Blood (Negative) Urine Nitrite (Negative) Urine Bilirubin (Negative) Urine Urobilinogen (<2.0) mg/dL Ur Leukocyte Esterase (Negative) Urine RBC (0-5) /hpf Urine WBC (0-5) /hpf Urine Bacteria (None) /hpf Influenza Type A (PCR) Not Detected (Not Detectd) Influenza Type B (PCR) Not Detected (Not Detectd) RSV (PCR) Not Detected (Not Detectd) SARS-CoV-2 (PCR) Not Detected (Not Detectd) - Radiology Data Chest x-ray: Normal heart. Mild pleural reaction left lung base. No heart failure. Pleural reaction is new compared to old exam. Noncontrast CT abdomen/pelvis: Left ureteral stent in good position. There is significant improvement in the left side perinephric fluid accumulation compared to last exam. There is minimal left-sided hydronephrosis. Nonobstructing right renal calculus unchanged. Epigastric midline subcutaneous mass unchanged. There appears to be clearing of the left side mid ureteral calculus compared to old exams. Disposition Clinical Impression: Generalized weakness, UTI (urinary tract infection) Disposition: HOME SELF-CARE Condition: Stable Instructions (If sedation given, give patient instructions): Weakness (ED), Urinary Tract Infection in Older Adults (ED) Additional Instructions: Return to the ER immediately should you develop new or worsening pain, a fever, feeling dizzy or faint, shortness of breath, vomiting, or new or worsening symptoms. Follow up closely with Dr. Castillo (urologist) as planned. Prescriptions: Ciprofloxacin HCl [Cipro] 500 mg PO Q12HR 7 Days #14 tablet Is patient prescribed a controlled substance at d/c from ED?: No Referrals: None,Stated [REFERRING] - 1-2 days Matt Castillo MD [STAFF PHYSICIAN] - 1-2 days Time of Disposition: 19:35
[2022-08-20] MEDS ORDERED: SODIUM CHLORIDE 0.9% 500 ML 500 ML IV STA (16:27)
[2022-08-20 17:46] VITALS: RESP 18
[2022-08-20 18:13] LABS: Basophils % (A) 0 %; Eosinophils % (A) 0 %; HCT 35.6 % (39.0-53.0); HGB 12.4 gm/dL (13.0-17.5); Lymphocytes # (A) 0.3 k/uL (1.0-4.8); Lymphocytes % (A) 3 %; MCH 31.7 pg (25.0-35.0); MCHC 34.7 g/dL (31.0-37.0); MCV 91.3 fL (80.0-100.0); Mean Platelet Volume 7.8; Monocytes # (A) 0.6 k/uL (0-1.0); Monocytes % (A) 6 %; Neutrophils # (A) 9.9 k/uL (1.3-7.7); Neutrophils % (A) 90 %; Platelet Count 206 k/uL (150-450); RDW 12.2 % (11.5-15.5)
[2022-08-20 18:14] LABS: ALT 22 U/L (4-49); AST 36 U/L (17-59); African American GFR (CKD) >90 (>60 ml/min/1.73 sqM); Albumin 3.1 g/dL (3.5-5.0); Alkaline Phosphatase 58 U/L (38-126); Anion Gap 4 mmol/L; Blood Urea Nitrogen 25 mg/dL (9-20); Calcium 8.6 mg/dL (8.4-10.2); Carbon Dioxide 25 mmol/L (22-30); Chloride 105 mmol/L (98-107); Glucose 143 mg/dL (74-99); Magnesium 1.9 mg/dL (1.6-2.3); Non-African American GFR(CKD) 80 (>60 ml/min/1.73 sqM); Potassium 4.1 mmol/L (3.5-5.1); Sodium 134 mmol/L (137-145); Total Bilirubin 1.4 mg/dL (0.2-1.3); Total Protein 5.8 g/dL (6.3-8.2)
--- NOTE | 2022-08-20 18:16 | CT ---
EXAMINATION TYPE: CT abdomen pelvis wo con DATE OF EXAM: 08/20/2022 COMPARISON: 08/16/2022 HISTORY: Chills, recent left ureteral stent placement CT DLP: 496.1 mGycm Automated exposure control for dose reduction was used. Images obtained from the diaphragm to the floor the pelvis without contrast. There is some infiltrate and atelectasis at both posterior lung bases. There are small pleural effusi ons. Heart is enlarged. Liver spleen stomach pancreas appear intact. The bowel is nondilated. Gallbladder appears normal. The re is midline upper abdominal subcutaneous mass measuring 3.5 cm with fluid density. There is no adrenal mass. There is left-sided ureteral stent. There is 3 cm cortical cyst posterior r ight kidney. There is 3 cm cortical cyst posterior left kidney. There is 4.5 cm cortical cyst lower p ole left kidney. There is small amount of air in the left renal collecting system. There is 2 mm calc ulus lower pole right kidney. No significant hydronephrosis. Ureters are not dilated. Ureteral stent in good position. Urinary bladder distends smoothly. No inguinal hernia. There is prostate calcificat ion. No free fluid in the pelvis. No pelvic mass. There is no mesenteric edema. No ascites or free air. No sign of a bowel obstruction. No sign of thic kened appendix. The lumbar vertebrae have normal alignment. There is multilevel lumbar spondylotic changes. No compre ssion fracture. There is moderate narrowing at L4-5 disc. The bony pelvis is intact. The hip joints a re intact. There is mild acetabular spurring. Sacroiliac joints are intact. There is some fat stranding around the left kidney. IMPRESSION: Left ureteral stent in good position. There is significant improvement in the left side perinephric f luid accumulation compared to last exam. There is minimal left-sided hydronephrosis. Nonobstructing right renal calculus unchanged. Epigastric midline subcutaneous mass unchanged. There appears to be clearing of the left side mid ureteral calculus compared to old exams.
--- NOTE | 2022-08-20 18:22 | XR ---
EXAMINATION TYPE: XR chest 2V DATE OF EXAM: 08/20/2022 COMPARISON: 12/22/2020 HISTORY: Syncope TECHNIQUE: 2 views FINDINGS: Heart is normal. Lungs are clear of infiltrate. There is slight blunting left costophrenic angle. There are no hilar masses. Thoracic aorta is atheromatous. There are chest leads. IMPRESSION: Normal heart. Mild pleural reaction left lung base. No heart failure. Pleural reaction is new compared to old exam.
[2022-08-20 18:33] LABS: Partial Thromboplastin Time 25.3 sec (22.0-30.0); Prothrombin Time 10.6 sec (9.0-12.0)
[2022-08-20 18:38] LABS: Appearance,Urine Cloudy (Clear); Bacteria,Urine Occasional /hpf; Bilirubin,Urine Negative (Negative); Blood,Urine Large (Negative); Color,Urine Yellow; Glucose,Urine (UA) Negative (Negative); Ketones,Urine 1+ (Negative); Leukocyte Esterase,Urine Large (Negative); Nitrite,Urine Positive (Negative); PH, Urine 6.5 (5.0-8.0); Protein,Urine 2+ (Negative); RBC,Urine >182 /hpf (0-5); Specific Gravity,Urine 1.019 (1.001-1.035); Urobilinogen,Urine <2.0 mg/dL (<2.0); WBC,Urine >182 /hpf (0-5)
[2022-08-20] MEDS ORDERED: CIPROFLOXACIN HCL 500 MG TAB PO STA (19:08)
[2022-08-20 19:21] VITALS: TEMP 98.6
[2022-08-20 19:36] VITALS: BP 136/74; PULSE 93
== END 2022-08-20 19:47 | disposition home or self-care (01) ==
LOC: EC 16:04
DX: N39.0 Urinary tract infection, site not specified (principal); R53.1 Weakness; Z20.822 Contact with and (suspected) exposure to COVID-19; Z88.0 Allergy status to penicillin
CPT/HCPCS: 36415; 71046; 74176; 80053; 81001; 83605; 83735; 84484; 85025; 85610; 85730; 87040; 87086; 87636; 93005; 99285

== ENCOUNTER 2022-09-05 19:16 | Emergency (ER) | payer MEDICARE ==
[2022-09-05] MEDS ORDERED: DIPH,PERTUS(ACELL)TETVAC-LF 0.5 ML VIAL IM ONE (20:44)
--- NOTE | 2022-09-05 21:16 | ED ---
Fall HPI - General Chief Complaint: Fall Stated Complaint: fall Time Seen by Provider: 09/05/22 20:31 Source: patient, family, RN notes reviewed Mode of arrival: ambulatory Limitations: no limitations - History of Present Illness Initial Comments: 87-year-old male presents emergency Department chief complaint of a head injury. Patient states that he has light headed episodes and states that he is outside working when he fell he did not lose conscious. Denies any syncopal episode. Patient has a laceration posterior scalp patient denies any complaints of headache, dizziness, blurred vision, neck pain, back pain as abrasion to his right elbow he is unsure when his last tetanus was. Denies being on any blood thinners. - Related Data Home Medications Medication Instructions Recorded Confirmed Aspirin EC [Ecotrin Low Dose] 81 mg PO Q3D 12/22/20 08/20/22 Hyrum-3 Fatty Acids/Fish Oil [Fish 1 cap PO Q2D 12/22/20 08/20/22 Oil 1,000 mg Softgel] Potassium Gluconate [Potassium 99 mg PO Q2D 12/22/20 08/20/22 Gluconate ER] Cholecalciferol [Vitamin D3 (25 25 mcg PO DAILY 05/17/21 08/20/22 Mcg = 1000 Iu)] bisacodyL [Dulcolax] 5 mg PO DAILY 05/17/21 08/20/22 Carboxymethylcellulose Sodium 1 drop BOTH EYES BID 08/16/22 08/20/22 [Refresh Tears] Previous Rx's Medication Instructions Recorded Ketorolac [Toradol] 10 mg PO Q6HR PRN #12 tab 08/18/22 Tamsulosin HCl [Flomax] 0.4 mg PO AC-SUPPER 14 Days #14 08/18/22 capsule Ciprofloxacin HCl [Cipro] 500 mg PO Q12HR 7 Days #14 tablet 08/20/22 Allergies Allergy/AdvReac Type Severity Reaction Status Date / Time amoxicillin Allergy Unknown Verified 09/05/22 19:39 Review of Systems ROS Statement: Those systems with pertinent positive or pertinent negative responses have been documented in the HPI. ROS Other: All systems not noted in ROS Statement are negative. Past Medical History Past Medical History: Cancer, Eye Disorder, Prostate Disorder Additional Past Medical History / Comment(s): hx. prostate cancer 2020-getting hormone injections, kidney stones, cataracts History of Any Multi-Drug Resistant Organisms: None Reported Past Surgical History: Hernia Repair Additional Past Surgical History / Comment(s): prostate biopsy,rt cataract, kidney stent Past Anesthesia/Blood Transfusion Reactions: No Reported Reaction Past Psychological History: No Psychological Hx Reported Smoking Status: Never smoker Past Alcohol Use History: None Reported Past Drug Use History: None Reported - Past Family History Mother Family Medical History: No Reported History Daughter(s) Family Medical History: Cancer Additional Family Medical History / Comment(s): breast General Exam Limitations: no limitations General appearance: alert, in no apparent distress Head exam: Present: normocephalic. Absent: atraumatic, normal inspection (4 cm scalp laceration occipital region) Eye exam: Present: normal appearance, PERRL, EOMI. Absent: scleral icterus, conjunctival injection, periorbital swelling ENT exam: Present: normal exam, normal oropharynx, mucous membranes moist Neck exam: Present: normal inspection, full ROM. Absent: tenderness, meningismus, lymphadenopathy Respiratory exam: Present: normal lung sounds bilaterally. Absent: respiratory distress, wheezes, rales, rhonchi, stridor Cardiovascular Exam: Present: regular rate, normal rhythm, normal heart sounds. Absent: systolic murmur, diastolic murmur, rubs, gallop, clicks Neurological exam: Present: alert, oriented X3, CN II-XII intact, reflexes normal. Absent: motor sensory deficit Skin exam: Present: warm, dry, intact, normal color. Absent: rash Course Vital Signs 09/05/22 19:35 Temperature 98.0 F Pulse Rate 68 Respiratory 18 Rate Blood Pressure 130/79 O2 Sat by Pulse 99 Oximetry Procedures - Laceration Laceration #1 Consent Obtained: verbal consent Indication: laceration Site: scalp Size (cm): 4 Description: linear Depth: simple, single layer Pre-repair: wound explored, irrigated extensively, deep structures intact Type of Sutures: other (dermal niki) Number of Sutures: 7 (Dermal niki) Technique: simple, interrupted Patient Tolerated Procedure: well, no complications Medical Decision Making - Medical Decision Making Was pt. sent in by a medical professional or institution (, PA, [employer], urgent care, hospital, or fci...) When possible be specific @ -No Did you speak to anyone other than the patient for history (EMS, parent, family, police, friend...)? What history was obtained from this source @ -No Did you review nursing and triage notes (agree or disagree)? Why? @ -I reviewed and agree with nursing and triage notes Were old charts reviewed (outside hosp., previous admission, EMS record, old EKG, old radiological studies, urgent care reports/EKG's, fci records)? Report findings @ -No old charts were reviewed Differential Diagnosis (chest pain, altered mental status, abdominal pain women, abdominal pain men, vaginal bleeding, weakness, fever, dyspnea, syncope, headache, dizziness, GI bleed, back pain, seizure, CVA, palpatations, mental health, musculoskeletal)? @ -Scalp laceration, intracranial hemorrhage, skull fracture, cervical fracture, head contusion EKG interpreted by me (3pts min.). @ -None X-rays interpreted by me (1pt min.). @ -None done CT interpreted by me (1pt min.). @ -CT the brain, C-spine showed no acute intracranial hemorrhage, there is evidence of scalp laceration no cervical fracture noted U/S interpreted by me (1pt. min.). @ -None done What testing was considered but not performed or refused? (CT, X-rays, U/S, labs)? Why? @ -None What meds were considered but not given or refused? Why? @ -None Did you discuss the management of the patient with other professionals (professionals i.e. , PA, [employer], lab, RT, psych nurse, socially responsible investment adviser, pleating machine operator, teacher, parking enforcement officer, supervisor case loading)? Give summary @ -No Was smoking cessation discussed for >3mins.? @ -No Was critical care preformed (if so, how long)? @ -No Were there social determinants of health that impacted care today? How? (Homelessness, low income, unemployed, alcoholism, drug addiction, transportation, low edu. Level, literacy, decrease access to med. care, fdc, rehab)? @ -No Was there de-escalation of care discussed even if they declined (Discuss DNR or withdrawal of care, Hospice)? DNR status @ -No What co-morbidities impacted this encounter? (DM, HTN, Smoking, COPD, CAD, Cancer, CVA, ARF, Chemo, Hep., AIDS, mental health diagnosis, sleep apnea, morbid obesity)? @ -None Was patient admitted / discharged? Hospital course, mention meds given and route, prescriptions, significant lab abnormalities, going to OR and other pertinent info. @ -[Discharge patient laceration was repaired CT was negative for acute process. Patient discharged in stable condition with wound care instructions and return parameters. Undiagnosed new problem with uncertain prognosis? @ -No Drug Therapy requiring intensive monitoring for toxicity (Heparin, Nitro, Insulin, Cardizem)? @ -No Were any procedures done? @ - laceration repair Diagnosis/symptom? @ -Scalp laceration Acute, or Chronic, or Acute on Chronic? @ -Acute Uncomplicated (without systemic symptoms) or Complicated (systemic symptoms)? @ -Uncomplicated Side effects of treatment? @ -No Exacerbation, Progression, or Severe Exacerbation? @ -No Poses a threat to life or bodily function? How? (Chest pain, [place], [place], pneumonia, PE, COPD, DKA, ARF, appy, cholecystitis, CVA, Diverticulitis, Homicidal, Suicidal, threat to staff... and all critical care pts) @ -No Disposition Clinical Impression: Fall, Scalp laceration Disposition: HOME SELF-CARE Condition: Stable Instructions (If sedation given, give patient instructions): Staple Care (ED), Head Injury (ED) Additional Instructions: Have niki removed in 10 days. Please return to the Emergency Department if symptoms worsen or any other concerns. Is patient prescribed a controlled substance at d/c from ED?: No Referrals: Antonietta Mcguire [Primary Care Provider] - 1-2 days Time of Disposition: 21:21
--- NOTE | 2022-09-05 21:19 | CT ---
EXAMINATION TYPE: CT brain cspine wo con CT DLP: 1416.8 mGycm, Automated exposure control for dose reduction was used. DATE OF EXAM: 09/05/2022 9:07 PM COMPARISON: 12/22/2020 CLINICAL INDICATION:Male, 87 years old with history of trauma; Fall. Laceration to back of head. TECHNIQUE: Brain: Multiple axial CT images of the brain were obtained without IV contrast. Cspine: Axial CT images from the skull base to the inferior aspect of T2 we obtained without intraven ous contrast. Coronal and sagittal reformatted images were also reviewed. FINDINGS: Brain: Extra-axial spaces: No abnormal extra-axial fluid collections. Ventricular system: Dilatation in proportion to cerebral atrophy. Cerebral parenchyma: Cerebral atrophy. No acute intraparenchymal hemorrhage or mass effect. The kimbrough -white junction is well differentiated. Scattered hypoattenuating areas are seen within the white mat ter. Cerebellum: Unremarkable. Mass effect: No evidence of midline shift. Intracranial vasculature: Atherosclerotic calcifications of the intracranial vessels. Soft tissues: Left posterior laceration with small hematoma/edema. Calvarium/osseous structures: No depressed skull fracture. Paranasal sinuses and mastoid air cells: Complete opacification of the right maxillary sinus. Visualized orbits: Bilaterally aphakia Cervical spine: Fracture: None. Osseous structures: Multilevel degenerative disc disease changes with endplate spurring and disc oste ophyte complex's. Vertebral alignment: Within normal limits. Spinal canal/Neural Foramina: No evidence of significant spinal canal narrowing. Facet joint uncovert ebral joint arthropathy scattered throughout the cervical spine with varying degrees of neural forami nal stenosis. Neck soft tissues: Prevertebral soft tissues are within normal limits. Other: The airway is patent. The lung apices are clear. IMPRESSION: 1. No acute intracranial process. 2. Nonspecific white matter changes, likely secondary to chronic small vessel ischemic disease. 3. No evidence of cervical spine fracture. 4. Mild multilevel degenerative disc disease. 5. Left posterior scalp edema/laceration. 6. Paranasal sinus disease most proximal right maxillary sinus.
[2022-09-05 21:36] VITALS: BP 136/81; PULSE 65; RESP 14; TEMP 97.9
== END 2022-09-05 21:58 | disposition home or self-care (01) ==
LOC: EC 19:16
DX: S01.01XA Laceration without foreign body of scalp, initial encounter (principal); Z88.0 Allergy status to penicillin; Z23 Encounter for immunization; W18.30XA Fall on same level, unspecified, initial encounter; Y92.009 Unspecified place in unspecified non-institutional (private) residence as the place of occurrence of the external cause
CPT/HCPCS: 12002; 70450; 72125; 90471; 90715; 99283

== ENCOUNTER → 2023-02-14 | Outpatient (CLI) | payer MEDICARE ==
[2023-02-14 12:14] LABS: African American GFR (CKD) 75 (>60 ml/min/1.73 sqM); Blood Urea Nitrogen 28 mg/dL (9-20); Non-African American GFR(CKD) 65 (>60 ml/min/1.73 sqM)
--- NOTE | 2023-02-14 13:35 | CT ---
EXAMINATION TYPE: CT abdomen pelvis w con DATE OF EXAM: 02/14/2023 COMPARISON: 08/20/2022. HISTORY: f/u prostate ca CT DLP: 1029 mGycm Automated exposure control for dose reduction was used. TECHNIQUE: Helical acquisition of images was performed from the lung bases through the pelvis. CONTRAST: Performed with Oral Contrast and with IV Contrast, patient injected with 100 mL of Isovue 300. FINDINGS: LOWER CHEST : The visualized lung bases are clear. There are no pleural or pericardial effusions. ABDOMEN: Liver and Biliary system: Normal. Adrenal glands: Normal. Kidneys and ureters: Unchanged bilateral renal cysts. Previously seen left nephroureteral stent has b een removed. There is no left-sided hydronephrosis at this time. Spleen: Normal. Pancreas: Mild parenchymal calcifications are seen within the pancreas that are unchanged. Gallbladder: Normal. Lymph nodes, Peritoneum and mesentery: There is no mesenteric or retroperitoneal lymphadenopathy. Gastrointestinal tract: There are no dilated loops of bowel or free intraperitoneal air. The appe ndix is normal. Aorta/IVC: No aortic aneurysm. IVC normal. Abdominal wall: 3.5 cm heterogeneous mass within the subcutaneous tissues of the abdominal wall in a supra umbilical location. This previously measured approximately 3.4 cm and is likely very similar t o the previous examination. There is a small fat-containing umbilical hernia. There is moderate desce nding colonic and sigmoid colonic diverticulosis without evidence of diverticulitis. PELVIS: Fluid: There is no free fluid in the pelvis. Lymph Nodes: There is no pelvic or inguinal lymphadenopathy.. Urinary bladder: Normal. BONES: The bones are diffusely demineralized. There are some scattered degenerative changes seen thr oughout the spine. There are no acute osseous abnormalities. The bones otherwise appear unchanged. ADDITIONAL SIGNIFICANT FINDINGS: None. IMPRESSION: 1. Previously seen left nephroureteral stent has been removed. 2. Unchanged soft tissue mass within the subcutaneous tissues of the upper abdominal wall. 3. Additional findings as above. There is otherwise no significant change.
== END | disposition home or self-care (01) ==
LOC: RADCTMAIN 11:17
PROVIDERS: ATTEND Urology
DX: C61 Malignant neoplasm of prostate (principal); R19.09 Other intra-abdominal and pelvic swelling, mass and lump; Z46.6 Encounter for fitting and adjustment of urinary device
CPT/HCPCS: 82565; 84520; 74177; 36415; Q9967

== ENCOUNTER → 2024-04-29 | Outpatient (CLI) | payer MEDICARE ==
[2024-04-29 08:11] LABS: African American GFR (CKD) 89 (>60 ml/min/1.73 sqM); Blood Urea Nitrogen 20 mg/dL (9-20); Non-African American GFR(CKD) 77 (>60 ml/min/1.73 sqM)
--- NOTE | 2024-04-29 10:16 | CT ---
EXAMINATION TYPE: CT abdomen pelvis w con CT DLP: 488.10 mGycm, Automated exposure control for dose reduction was used. DATE OF EXAM: 04/29/2024 9:19 AM COMPARISON: CT abdomen pelvis most recent from 02/14/2023 . CLINICAL INDICATION:Male, 89 years old with history of C61 prostate ca; prostate cancer TECHNIQUE: Standard CT of the abdomen and pelvis following the administration of 100 cc of Isovue 3 00 IV contrast material. Coronal and sagittal reformats were performed. FINDINGS: LOWER CHEST: Linear scarring within the right lower lobe. Mildly prominent heart. ABDOMEN LIVER: Stable subcentimeter hypodense focus within the inferior right hepatic lobe which is too small to characterize. Stable 1 cm vascular shunt within the left hepatic lobe. GALLBLADDER AND BILE DUCTS: Unremarkable. PANCREAS: Mild parenchymal calcification is seen within the pancreas that are unchanged. Can be seen with chronic pancreatitis. No significant ductal dilatation. SPLEEN: Unremarkable. ADRENAL GLANDS: Unremarkable. KIDNEYS AND URETERS: No evidence of hydronephrosis or renal calculus. The kidneys enhance symmetrical ly. Bilateral renal cysts redemonstrated with the largest appearing from the upper pole of the right kidney measuring up to 3.4 cm. Largest from the inferior pole of the left kidney measures up to 4.9 c m. Retroaortic left renal vein. Contrast is demonstrated within both collecting systems on the delaye d phase. PELVIS BLADDER: Incompletely distended but grossly unremarkable. REPRODUCTIVE: Coarse calcifications of the prostate gland are identified. Mildly enlarged prostate gl and. ABDOMEN & PELVIS STOMACH AND BOWEL: Small hiatal hernia, duodenum is unremarkable. No focal bowel wall thickening or s urrounding inflammatory changes. No evidence of bowel obstruction. Colonic diverticulosis without aura dence for acute diverticulitis. PERITONEUM: No evidence of pneumoperitoneum or free fluid. VASCULATURE: Mild atherosclerotic calcifications are present throughout the abdominal aorta and its b ranches. No evidence of aortic aneurysm. Pelvic phleboliths. MUSCULOSKELETAL: No acute osseous abnormalities. Degenerative changes of the bilateral SI joints. No new aggressive osseous lesion. Degenerative changes of the pubic symphysis. Moderate multilevel degen erative disease. LYMPH NODES: No evidence for lymphadenopathy. SOFT TISSUE/ABDOMINAL WALL: Right inguinal hernia containing fat with small bowel abutting its openin g. Increased size of supraumbilical midline abdominal subcutaneous tissue 4.2 x 2.5 cm heterogenous e nhancing lesion, previously measuring up to 3.5 cm. Fat-containing umbilical hernia. IMPRESSION: 1. Mild increased size of indeterminate heterogenous mass within the subcutaneous tissues of the midl ine anterior abdominal wall. May represent a large sebaceous cyst versus other etiologies. Has been g rown in size since 2009. 2. No new evidence for metastasis within the visualized abdomen and pelvis. [facility], , 04/29/2024 10:14 AM
--- NOTE | 2024-04-29 12:02 | NM ---
EXAMINATION TYPE: NM bone scan whole body DATE OF EXAM: 04/29/2024 COMPARISON: 02/19/2023 CLINICAL INDICATION: Male, 89 years old with history of C61 prostate ca; Technique: Delayed whole-body scanning was performed following the injection of 25.8 mCi Tc 99m MDP. Images acquired 3 hours post injection. FINDINGS: There are new foci of increased activity involving the third through seventh anterior/anterolateral l eft-sided ribs. Some activity at the ulnar side of the distal left forearm and at the left base of th e thumb probably related to the injection site. Some degenerative tracer activity again noted at the right shoulder. Also at the medial right ankle. Some urine contamination also noted. No other suspici ous tracer activity identified. IMPRESSION: 1. Foci of increased activity involving anterior/anterolateral left third through seventh ribs. Given the linear distribution, a posttraumatic etiology is favored over a new osseous metastases. Correlat e for any recent trauma and with PSA values. 2. Foci at the distal left forearm and left base of the thumb probably a combination of degenerative activity and relating to the injection site. Clinically correlate. 3. Some urine contamination noted. 4. Degenerative tracer activity medial right ankle and right shoulder. [facility], , 04/29/2024 11:59 AM
== END | disposition home or self-care (01) ==
LOC: RADNMMAIN 07:21
PROVIDERS: ATTEND Urology
DX: C61 Malignant neoplasm of prostate (principal); M19.011 Primary osteoarthritis, right shoulder
CPT/HCPCS: 82565; 84520; 74177; 36415; 78306; A9503; Q9967